=== PATIENT | male | born 1930 | race Two or more races ===

== ENCOUNTER 2016-11-18 00:49 | Inpatient (IN) | payer MEDICARE ==
[~2016-11-18] VITALS: Ht 165.1 cm; Wt 50.0 kg
--- NOTE | 2016-11-18 00:55 | NUR ---
To bed 5 an 86 yo male bibra with c/o sob and o2 sat on room air at 80's. Patient also noted to be lethargic, withdraws to deep pain. Arrived with nonrebreather mask at 15LPM saturating at 97%. Wheezing and rhonci heard on camilo lungs. Maintained patent airway. Kept hob elevated. Noted 1st degree block with bbb on the monitor. Skin warm and dry to touch. Gowned. Dr Acevedo at bedside for eval.
[2016-11-18] MEDS ORDERED: LEVOFLOXACIN 750 MG /D5W 150ML 150 ML IV ONE ×2 (01:00→01:06)
[2016-11-18] MEDS ORDERED: ACETAMINOPHEN 650 MG/SUPP.RECT RC ONE ×3 (01:00→01:06)
[2016-11-18] MEDS ORDERED: IV SET PRIMARY PUMP SET 1 EA INFUS.SET MC ONE ×3 (01:06→04:17)
--- NOTE | 2016-11-18 01:10 | NUR ---
inserted moreno cath with ease, about 100cc of clear yellow urine noted, urine collected. Called lab for cone picker.
[2016-11-18] MEDS ORDERED: ALBUTEROL FS 2.5 MG/3 ML VIAL.NEB ONE ×2 (01:16→05:44)
[2016-11-18] MEDS ORDERED: IPRATROPIUM NEB FS 0.5 MG/2.5 ML AMPUL.NEB ONE ×2 (01:17→02:06)
[2016-11-18 01:25] LABS: BASOPHILS # (AUTO) 0.5 /CMM (0.0-0.2); BASOPHILS % (AUTO) 3.1 % (0.0-2.0); HEMATOCRIT 35 % (39-51); LYMPHOCYTES # (AUTO) 0.3 /CMM (0.8-4.8); LYMPHOCYTES % (AUTO) 1.9 % (20.0-44.0); MEAN CORPUSCULAR HEMOGLOBIN 26 PG (26.0-33.0); MEAN CORPUSCULAR HGB CONC 32 g/dl (31.0-36.0); MEAN CORPUSCULAR VOLUME 83 fL (80-96); MONOCYTES # (AUTO) 0.6 /CMM (0.1-1.30); MONOCYTES % (AUTO) 3.9 % (2.0-12.0); NEUTROPHILS # (AUTO) 13.5 /CMM (1.8-8.9); NEUTROPHILS % (AUTO) 91.1 % (43.0-81.0); PLATELET COUNT (AUTO) 241 /CMM (150-450); RDW COEFFICIENT OF VARIATION 14.9 (11.5-15.0); RED BLOOD CELL COUNT(AUTO) 4.17 MIL/uL (4.5-6.0); WHITE BLOOD COUNT (AUTO) 14.9 K/uL (4.3-11.0)
--- NOTE | 2016-11-18 01:26 | NUR ---
xr at bedside.
--- NOTE | 2016-11-18 01:26 | NUR ---
rt for breathing treatment at bedside.
[2016-11-18] MEDS ORDERED: VANCOMYCIN 1 GM in IV D5W 250 ML IV ONE (01:30)
[2016-11-18] MEDS ORDERED: MEROPENEM 1,000 MG in IV NS 0.9% 100 ML IV ONE (01:30)
[2016-11-18 01:35] LABS: INR 1.19 (0.87-1.13); PROTHROMBIN TIME 12.9 SECS (9.5-12.7)
[2016-11-18] MEDS ORDERED: IV D5W 250 ML IV ONE (01:35)
[2016-11-18] MEDS ORDERED: VANCOMYCIN 1 GM VIAL ONE (01:35)
[2016-11-18 01:36] LABS: CALCIUM, SERUM 8.5 mg/dL (8.5-10.1); CARBON DIOXIDE 36 mmol/L (21-32); CHLORIDE 101 mmol/L (98-107); CREATININE 0.9 mg/dL (0.6-1.3); GLUCOSE 180 mg/dL (74-106); POTASSIUM 3.9 mmol/L (3.5-5.1); SODIUM SERUM 139 mmol/L (136-145); UREA NITROGEN, BLOOD 27 mg/dL (7-18)
[2016-11-18] MEDS ORDERED: MAGN400O4 GT (01:40)
[2016-11-18] MEDS ORDERED: BISA-79 RC (01:40)
[2016-11-18] MEDS ORDERED: RISP0.5T2 PO (01:40)
[2016-11-18] MEDS ORDERED: ACET-73 GT (01:40)
[2016-11-18] MEDS ORDERED: DONE10TA44 GT (01:40)
[2016-11-18] MEDS ORDERED: ASPI81TA2 GT (01:40)
[2016-11-18] MEDS ORDERED: ACET650T10 GT (01:40)
[2016-11-18] MEDS ORDERED: MULT9LIQ6 PO (01:40)
[2016-11-18] MEDS ORDERED: SENN8.6T6 GT (01:40)
[2016-11-18] MEDS ORDERED: ALBU2.5V38 NEB (01:40)
[2016-11-18 01:43] LABS: BILIRUBIN,URINE NEGATIVE (NEGATIVE); BLOOD, URINE 1+ Ery/uL (NEGATIVE); COLOR,URINE YELLOW (YELLOW); KETONES,URINE NEGATIVE (NEGATIVE); LEUKOCYTE ESTERASE ,URINE NEGATIVE (NEGATIVE); NITRITE, URINE NEGATIVE (NEGATIVE); PH,URINE 5.5 (5.0-8.0); PROTEIN,URINE NEGATIVE (NEGATIVE); UGLUCOSE NEGATIVE (NEGATIVE); UROBILINOGEN,URINE 0.2 EU/dL (0.2)
[2016-11-18 01:43] LABS: TROPONIN I 0.052 ng/mL (0.00-0.056)
[2016-11-18] MEDS ORDERED: DEXAMETHASONE SOD PHOSPHATE 10 MG/ML VIAL ONE (01:45)
[2016-11-18 01:47] LABS: LACTIC ACID 2.6 mmol/L (0.4-2.0)
[2016-11-18 01:51] LABS: ALANINE AMINOTRANSFERASE 32 U/L (12-78); ALBUMIN 2.2 g/dL (3.4-5.0); ALKALINE PHOSPHATASE 73 U/L (46-116); ASPARTATE AMINOTRANSFERASE 20 U/L (15-37); B-TYPE NATRIURETIC PEPTIDE 2460 PG/ML (0-125); BILIRUBIN,DIRECT 0.1 mg/dL (0.0-0.2); BILIRUBIN,TOTAL 0.5 mg/dL (0.2-1.0)
[2016-11-18 01:53] LABS: ABG BASE EXCESS 6.3 mmol/L; ABG OXYGEN SATURATION 75.6 % (92.0-98.5); ABG PCO2 51.5 mmHg (35.0-45.0); ABG PH 7.412 (7.350-7.450); ABG PO2 41.2 mmHg (75.0-100.0); COHb 1.5 % (0.5-1.5); MetHb 0.8 % (0.0-1.5); O2Hb 73.9 % (94.0-97.0); VENT MODE, BG VENOUS NRB 15L
--- NOTE | 2016-11-18 01:53 | NUR ---
decadron 10mg slow ivp given on the lfa g20 per verbal order of Dr Acevedo at bedside.
[2016-11-18] MEDS ORDERED: IV NS 0.9% 1,000 ML ONE ×2 (01:59→04:17)
[2016-11-18] MEDS ORDERED: IV SET PRIMARY 1 EA INFUS.SET MC ONE (01:59)
[2016-11-18 02:00] LABS: APPEARANCE,URINE HAZY (CLEAR)
[2016-11-18] MEDS ORDERED: IPRATROPIUM NEB FS 0.5 MG/2.5 ML AMPUL.NEB NEB ONE (02:00)
[2016-11-18] MEDS ORDERED: DEXAMETHASONE SOD PHOSPHATE 10 MG/ML VIAL IV ONE (02:00)
[2016-11-18] MEDS ORDERED: IV NS 0.9% 1,000 ML BAG IV ONE (02:00)
[2016-11-18] MEDS ORDERED: ALBUTEROL FS 2.5 MG/3 ML VIAL.NEB CONTNEB ONE (02:00)
[2016-11-18 02:04] LABS: ADD URINE CULTURE NO; BACTERIA,URINE None seen /HPF (None Seen); MUCUS,URINE Moderate /LPF (None Seen); SQUAMOUS EPITHELIAL CELL,UR Few /HPF (None Seen); WBC,URINE 0-2 /HPF (0-3)
[2016-11-18 02:09] LABS: BAND % (MANUAL) 6 % (0.0-5.0); HYPOCHROMASIA 1+; LYMPHOCYTES % (MANUAL) 1 % (16-48); MONOCYTES % (MANUAL) 2 % (0-11.0); NEUTROPHILS % (MANUAL) 91 (42-76); PLATELET ESTIMATE ADEQUATE
[2016-11-18] MEDS ORDERED: IV NS 0.9% 100 ML IV ONE ×2 (02:18→04:14)
[2016-11-18] MEDS ORDERED: MEROPENEM 1 G VIAL IV ONE (02:18)
[2016-11-18 02:29] LABS: TOTAL PROTEIN, SERUM 6.5 g/dL (6.4-8.2)
[2016-11-18] MEDS ORDERED: HYDROCODONE/APAP 5/325MG 1 EACH TABLET PO PRN (03:00)
[2016-11-18] MEDS ORDERED: MAG HYDROX/AL HYDROX/SIMETH 30 ML UDC PO PRN (03:00)
[2016-11-18] MEDS ORDERED: ZOLPIDEM TARTRATE 5 MG TABLET PO PRN (03:00)
[2016-11-18] MEDS ORDERED: ONDANSETRON HCL/PF 4 MG/2 ML VIAL IVP PRN (03:00)
[2016-11-18] MEDS ORDERED: LEVOFLOXACIN 500 MG /D5W 100ML 500 MG in PREMIX 1 EA IV SCH (03:00)
[2016-11-18] MEDS ORDERED: ENOXAPARIN SODIUM 40 MG/0.4 ML DISP.SYRIN SQ SCH (03:00)
[2016-11-18] MEDS ORDERED: MAGNESIUM HYDROXIDE 30 ML UDC PO PRN (03:00)
--- NOTE | 2016-11-18 03:04 | NUR ---
Report given to Camilo BECK for brigitte.
[2016-11-18] MEDS: ALBUTEROL FS 2.5 MG/3 ML VIAL.NEB NEB SCH ×7 (03:30→22:51)
[2016-11-18 04:00] VITALS: BP 104/70
--- NOTE | 2016-11-18 04:00 | NUR ---
TELE-TD/MAINFRAME CONSULTANT PT ADMITTED TO ROOM 109 BED 1. SKIN ASSESSMENT AND ADMISSION ASSESSMENT COMPLETE. PT GIVEN BED BATH, LINENS CHANGED. VSS. WILL CONTINUE TO MONITOR.
--- NOTE | 2016-11-18 04:04 | NUR ---
TRANSPORTED TO [facility] BED UNDER ALS PROTOCOL, NO INCIDENT NOTED.
[2016-11-18] MEDS ORDERED: ENOXAPARIN SODIUM 40 MG/0.4 ML DISP.SYRIN SQ ONE (04:14)
[2016-11-18] MEDS: IV NS 0.9% 1,000 ML IV PRN ×3 (04:37→22:00)
--- NOTE | 2016-11-18 04:53 | NUR ---
CRITICAL LAB: REPEAT LACTIC 2.7 DR. HENDRICKSON NOTIFIED NO NEW ORDERS.
[2016-11-18] MEDS ORDERED: MEROPENEM 1 G in IV NS 0.9% 100 ML IV SCH (05:00)
--- NOTE | 2016-11-18 05:35 | NUR ---
TELE-TD/SLEEP LAB TECHNOLOGIST DR. HENDRICKSON PAGED TO CHANGE PT DIET TO GTUBE FEEDING. PER DR. HENDRICKSON ENDORSE TO DAYSHIFT. WILL CONTINUE TO MONITOR.
--- NOTE | 2016-11-18 07:40 | NUR ---
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
[2016-11-18 07:51] LABS: ABG OXYGEN SATURATION 94.7 % (92.0-98.5); ABG PCO2 35.8 mmHg (35.0-45.0); ABG PH 7.471 (7.350-7.450); ABG PO2 72.6 mmHg (75.0-100.0); ABG TOTAL HEMOGLOBIN 11.2 G/dL (13.5-18.0); AaDO2 286.9 mmHg; COHb 0.2 % (0.5-1.5); MetHb 0.6 % (0.0-1.5); O2Hb 93.9 % (94.0-97.0); SITE, ABG Right Radial; VENT MODE, BG SIMPLE MASK
[2016-11-18 08:00] VITALS: BP 117/58
[2016-11-18] MEDS: PANTOPRAZOLE 40 MG TABLET.DR PO SCH (09:17)
[2016-11-18] MEDS: ASPIRIN 81 MG TAB.CHEW GT SCH (09:17)
[2016-11-18] MEDS: risperiDONE 1 MG TABLET PO SCH ×2 (09:17→16:56)
--- NOTE | 2016-11-18 10:18 | NUR ---
NURSING TEACHER NOTE NASOPHARYNGEAL SUCTION DONE .KEEP CLEAN DRY, FAMILY AT BEDSIDE
[2016-11-18 12:00] VITALS: BP 115/62
--- NOTE | 2016-11-18 12:32 | NUR ---
MANAGER ECOMMERCE NOTE SPOKE WITH DR ALEGRE NOTIFIED . ABOUT ABG RESULT STATED ITS OK FOR NOW, CONT 9L O2 BY SIMPLE MASK ALSO NOTIFIED THAT PATIENT STILL NPO HOLD G TUBE FEEDING, STATED ITS OK FOR NOW WILL F\U
--- NOTE | 2016-11-18 13:00 | NUR ---
TELE RNNOTE SPOKE WITH DR ALEGRE NOTIFIED THAT BNP 2460 AND OK TO START ON G TUBE FEEDING FIBERSOURCE AT 60 ML PER HOUR
[2016-11-18] MEDS ORDERED: SECONDARY IV SET 1 EA INFUS.SET MC ONE (13:09)
[2016-11-18] MEDS: MEROPENEM 1 G in IV NS 0.9% 100 ML IV SCH (13:10)
[2016-11-18] MEDS: FIBERSOURCE HN 1,000 ML BOTTLE GT PRN (13:50)
[2016-11-18 16:00] VITALS: BP 99/58
--- NOTE | 2016-11-18 16:13 | NUR ---
SUPERVISOR CHANNEL PROCESS NOTE PLACED ON ISOFLEX BED ORDERED ,KEEP CLEAN DRY , RT AT BEDSIDE NASOPHARYNGEAL SUCTION DONE .WILL CONT TO MONITOR CLOSELY. ON BREATHING TX
--- NOTE | 2016-11-18 18:55 | NUR ---
ZIPPER REPAIRER NOTE WITH SEVERE CHEST CONGESTION ,HOLD G TUBE FEEDING FOR NOW , KEEP HOB ELEVATED WILL CONT TO MONITOR CLOSELY
--- NOTE | 2016-11-18 18:55 | NUR ---
DIETARY SUPERVISOR NOTE NOTED THAT PATIENT HAS SEVERE CHEST CONGESTION OROPHARYNGEAL SUCTION DONE OBTAINED MOD TO LARGE BLOODY SECRETION , CALLED RT .RT AT BEDSIDE , CALLED TO DR ALEGRE , LEFT A MESSAGE WILL AWAIT FOR RETURN CALL
--- NOTE | 2016-11-18 19:28 | NUR ---
MANAGER ART NOTE DR ALEGRE CALLED BACK NO NEW ORDER OK TO HOLD G TUBE FEEDING FOR NOW AWARE THAT PATIENT ASA AND LOVENOX
--- NOTE | 2016-11-18 19:30 | NUR ---
EMERGENCY ROOM CLINICIAN INITIAL NOTES RECEIVED PATIENT IN BED, LETHARGIC, RESPONSIVE TO TACTILE STIMULI, A/O X1. ON O2 VIA SIMPLE MASK @ 9LPM, TOLERATING WELL, SPO2 97% AT THIS TIME. ON TELEMETRY MONITORING, REVEALING SR WITH 1 DEGREE HB, WITH BBB AND OCCASIONAL PACs. MYERS CATHETER PATENT AND INTACT, CONNECTED TO DRAINAGE BAG BY GRAVITY. GT PATENT AND INTACT, WITH TUBE FEEDINGS PRESCRIBED, TOLERATING WELL, NO GASTRIC RESIDUALS NOTED AT THIS TIME. IV SITES PATENT AND INTACT, FLUSHED WITH NS, FREE FROM ANY S/S OF INFILTRATION OR PHLEBITIS. BED IN LOWEST AND LOCKED POSITION, CALL LIGHT LEFT WITHIN EASY REACH. WILL CONTINUE TO CLOSELY MONITOR Addendum: 11/18/16 at 2359 by NAINA CHEN RN RT AT BEDSIDE. PER RT, PATIENT IS ABLE TO COUGH. PATIENT INSTRUCTED TO COUGH, PRODUCTIVE, SUCTIONED FOR AIRWAY CLEARANCE
[2016-11-18 20:00] VITALS: BP 122/65
[2016-11-18] MEDS: DONEPEZIL 5 MG TABLET PO SCH (21:55)
[2016-11-19] VITALS: BP 122/67
[2016-11-19] MEDS ORDERED: LEVOFLOXACIN 250 MG /D5W 50 ML 250 MG in PREMIX 1 EA IV SCH (01:00)
[2016-11-19] MEDS ORDERED: SECONDARY IV SET 1 EA INFUS.SET MC ONE ×2 (01:49→20:44)
[2016-11-19] MEDS: MEROPENEM 1 G in IV NS 0.9% 100 ML IV SCH ×2 (01:55→13:43)
[2016-11-19] MEDS: ALBUTEROL FS 2.5 MG/3 ML VIAL.NEB NEB SCH ×6 (02:51→23:08)
[2016-11-19 04:00] VITALS: BP 125/66
[2016-11-19 06:44] LABS: EOSINOPHILS % (AUTO) 0.2 % (0.0-6.0); HEMATOCRIT 32 % (39-51); HEMOGLOBIN 10.3 g/dL (13.5-17.5); LYMPHOCYTES # (AUTO) 0.3 /CMM (0.8-4.8); LYMPHOCYTES % (AUTO) 1.5 % (20.0-44.0); MEAN CORPUSCULAR HEMOGLOBIN 27 PG (26.0-33.0); MEAN CORPUSCULAR HGB CONC 32 g/dl (31.0-36.0); MEAN CORPUSCULAR VOLUME 84 fL (80-96); MONOCYTES # (AUTO) 0.7 /CMM (0.1-1.30); NEUTROPHILS # (AUTO) 15.7 /CMM (1.8-8.9); NEUTROPHILS % (AUTO) 94.3 % (43.0-81.0); PLATELET COUNT (AUTO) 256 /CMM (150-450); RDW COEFFICIENT OF VARIATION 15.1 (11.5-15.0); RED BLOOD CELL COUNT(AUTO) 3.79 MIL/uL (4.5-6.0); WHITE BLOOD COUNT (AUTO) 16.6 K/uL (4.3-11.0)
--- NOTE | 2016-11-19 07:00 | NUR ---
RN CLOSING NOTES PATIENT RESTING COMFORTABLY IN BED. PATIENT ENDORSED TO THE AM SHIFT NURSE FOR HADLEY
--- NOTE | 2016-11-19 07:18 | NUR ---
RN NOTES RECEIVED PATIENT ON BED , LETHARGIC, RESPONSIVE TO TACTILE STIMULI, A/O X1. RECEIVING BREATHING TX AT THIS TIME , SPO2 97% , ON TELEMETRY MONITORING, REVEALING SR WITH 1 DEGREE HB, WITH BBB AND OCCASIONAL PACs. MYERS CATHETER DRAINING TO GRAVITY , PATENT AND INTACT, FIBERSOURCE AT 60CC/HR RUNNING VIA GT . LA FA AND R FA IV SITES PATENT AND INTACT, BED LOCKED AND IN LOWEST , POSITION, CALL LIGHT WITHIN EASY REACH. WILL CONTINUE TO MONITOR PT CLOSELY AND NOFIY MD FOR ANY SIGNIFICANT CHANGE.
[2016-11-19 07:35] LABS: CALCIUM, SERUM 8.4 mg/dL (8.5-10.1); CREATININE 0.7 mg/dL (0.6-1.3); MAGNESIUM 2.1 mg/dL (1.8-2.4); PHOSPHORUS 2.3 mg/dL (2.5-4.9); POTASSIUM 4.1 mmol/L (3.5-5.1)
[2016-11-19] MEDS: IV NS 0.9% 1,000 ML IV PRN (07:54)
[2016-11-19 08:00] VITALS: BP 127/69
[2016-11-19] MEDS: risperiDONE 1 MG TABLET PO SCH (08:19)
[2016-11-19] MEDS: ASPIRIN 81 MG TAB.CHEW GT SCH (08:19)
[2016-11-19] MEDS: PANTOPRAZOLE 40 MG TABLET.DR PO SCH (08:19)
[2016-11-19] MEDS: ENOXAPARIN SODIUM 40 MG/0.4 ML DISP.SYRIN SQ SCH (08:20)
[2016-11-19 12:00] VITALS: BP_SYST 128; BP_DIAS 60; BP_DIAS 73
--- NOTE | 2016-11-19 14:32 | NUR ---
WOUND CARE CONSULT: PATIENT SEEN AND SKIN ASSESSMENT DONE. PATIENT IMMOBILE, ON 02 FACE MASK, INCONTINENT OF STOOLS, HAS F/C, ROSY 12, ON CARSON ISOFLEX ELIZABETH BED. SEE TODAY'S SKIN ASSESSMENT IN PCS ALONG WITH RECOMMENDATIONS. RECOMMEND PRESSURE PREVENTION MEASURES, TURN AND REPOSITION EVERY 2 HRS PATIENT CONDITION PERMITS, OFFLOAD BOTH HEELS, MOISTURE PROTECTION WITH Z GUARD ORDERED. ALL DISCUSSED WITH NURSING STAFF. MD IN AGREEMENT WITH PLAN OF CARE. Addendum: 11/19/16 at 1438 by KAREN CHOUDHARY WNDNU Amended: Links added.
[2016-11-19] MEDS: IPRATROPIUM NEB FS 0.5 MG/2.5 ML AMPUL.NEB NEB PRN (14:33)
[2016-11-19] MEDS: ACETYLCYSTEINE 10% SOLN 400 MG/4 ML VIAL NEB SCH ×2 (14:33→23:07)
--- NOTE | 2016-11-19 15:18 | NUR ---
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
[2016-11-19 16:00] VITALS: BP 123/59
[2016-11-19] MEDS ORDERED: NEUTRA PHOS 1 POWD.PACKET NG ONE (16:00)
[2016-11-19] MEDS: Z GUARD REMEDY 2 OZ OINT TP PRN (16:02)
[2016-11-19] MEDS: LACTOBACILLUS RHAMNOSUS GG 1 EACH CAP.SPRINK GT SCH (16:02)
[2016-11-19] MEDS: FIBERSOURCE HN 1,000 ML BOTTLE GT PRN (16:12)
[2016-11-19] MEDS: MUPIROCIN OINT 2% 22 GM TUBE SCH ×2 (16:46→20:54)
--- NOTE | 2016-11-19 18:11 | NUR ---
RN NOTES PT STABLE, STILL ON SIMPLE MASK , O2 SAT 98%. MYERS TO GRAVITY DRAINING WELL, LFA AND RFA IV SITES CDI, COMPUTATIONAL THEORY SCIENTIST AT THE BEDSIDE , PT MEDICATED PER MD ORDER , NO SIGNIFICANT CHANGES NOTED ON THIS SHIFT.
[2016-11-19] MEDS ORDERED: FEE PK DOSING 1 MIN EA MC ONE (19:02)
--- NOTE | 2016-11-19 19:30 | NUR ---
ASSISTANT PROFESSOR SURGICAL TECHNOLOGY INITIAL NOTES RECEIVED PATIENT IN BED, LETHARGIC, RESPONSIVE TO TACTILE STIMULI, A/O X1. ON O2 VIA SIMPLE MASK @ 10LPM, TOLERATING WELL, SPO2 98% AT THIS TIME. ON TELEMETRY MONITORING, REVEALING SR WITH 1 DEGREE HB, HR = 78. MYERS CATHETER PATENT AND INTACT, CONNECTED TO DRAINAGE BAG BY GRAVITY. GT PATENT AND INTACT, WITH TUBE FEEDINGS PRESCRIBED, TOLERATING WELL, NO GASTRIC RESIDUALS NOTED AT THIS TIME. IV SITES PATENT AND INTACT, FLUSHED WITH NS, FREE FROM ANY S/S OF INFILTRATION OR PHLEBITIS. BED IN LOWEST AND LOCKED POSITION, CALL LIGHT LEFT WITHIN EASY REACH. WILL CONTINUE TO CLOSELY MONITOR
[2016-11-19 20:00] VITALS: BP 108/52
[2016-11-19] MEDS ORDERED: VANCOMYCIN 1 GM in IV D5W 250 ML IV SCH (20:00)
[2016-11-19] MEDS: VANCOMYCIN 1 GM in IV D5W 250 ML IV SCH (20:53)
[2016-11-19] MEDS: DONEPEZIL 5 MG TABLET PO SCH (20:54)
[2016-11-19] MEDS ORDERED: MUPIROCIN OINT 2% 22 GM TUBE SCH (21:00)
[2016-11-19] MEDS ORDERED: FUROSEMIDE 20 MG/2 ML VIAL IV SCH (23:30)
[2016-11-20] VITALS (7 sets, daily range): BP systolic 107–136; BP diastolic 59–79
[2016-11-20] MEDS ORDERED: FUROSEMIDE 20 MG/2 ML VIAL ONE (00:17)
[2016-11-20] MEDS: ACETAMINOPHEN 325 MG TABLET PO PRN ×2 (00:22→20:06)
--- NOTE | 2016-11-20 00:22 | NUR ---
RN NOTES PATIENT WITH NEW ORDER FOR LASIX 20MG IVP X1. MEDICATION OVERRIDE PERFORMED BY CHARGE NURSE ALTHEA, ADMINISTERED PRESCRIBED. WILL CONTINUE TO CLOSELY MONITOR
[2016-11-20] MEDS: MEROPENEM 1 G in IV NS 0.9% 100 ML IV SCH ×2 (02:58→13:50)
[2016-11-20] MEDS: ALBUTEROL FS 2.5 MG/3 ML VIAL.NEB NEB SCH ×6 (03:18→23:07)
[2016-11-20] MEDS: IPRATROPIUM NEB FS 0.5 MG/2.5 ML AMPUL.NEB NEB PRN ×2 (03:18→07:06)
--- NOTE | 2016-11-20 05:00 | NUR ---
RN NOTES PATIENT NOTED TO HAVE EPISODE OF DESATURATION TO 84, PLACED ON NONREBREATHER. WILL CONTINUE TO CLOSELY MONITOR
[2016-11-20] MEDS ORDERED: IV NS 0.9% 250 ML IV ONE (05:22)
--- NOTE | 2016-11-20 06:45 | NUR ---
RN CLOSING NOTES PATIENT RESTING COMFORTABLY IN BED, CONTINUES ON NONREBREATHER @ 15LPM. WILL ENDORSE THE PATIENT TO THE AM SHIFT NURSE FOR HADLEY
[2016-11-20 06:48] LABS: HEMATOCRIT 31 % (39-51); HEMOGLOBIN 10.3 g/dL (13.5-17.5); LYMPHOCYTES # (AUTO) 0.4 /CMM (0.8-4.8); LYMPHOCYTES % (AUTO) 2.7 % (20.0-44.0); MEAN CORPUSCULAR HEMOGLOBIN 27 PG (26.0-33.0); MEAN CORPUSCULAR HGB CONC 33 g/dl (31.0-36.0); MEAN CORPUSCULAR VOLUME 84 fL (80-96); MONOCYTES # (AUTO) 0.5 /CMM (0.1-1.30); MONOCYTES % (AUTO) 3.2 % (2.0-12.0); NEUTROPHILS # (AUTO) 13.9 /CMM (1.8-8.9); NEUTROPHILS % (AUTO) 94.1 % (43.0-81.0); PLATELET COUNT (AUTO) 253 /CMM (150-450); RED BLOOD CELL COUNT(AUTO) 3.75 MIL/uL (4.5-6.0); WHITE BLOOD COUNT (AUTO) 14.7 K/uL (4.3-11.0)
[2016-11-20] MEDS: ACETYLCYSTEINE 10% SOLN 400 MG/4 ML VIAL NEB SCH ×3 (07:05→23:07)
[2016-11-20 07:11] LABS: ALBUMIN 1.9 g/dL (3.4-5.0); BILIRUBIN,TOTAL 0.4 mg/dL (0.2-1.0); CALCIUM, SERUM 8.5 mg/dL (8.5-10.1); CREATININE 0.6 mg/dL (0.6-1.3); MAGNESIUM 2.1 mg/dL (1.8-2.4); PHOSPHORUS 2.7 mg/dL (2.5-4.9); POTASSIUM 3.3 mmol/L (3.5-5.1); TOTAL PROTEIN, SERUM 5.7 g/dL (6.4-8.2)
--- NOTE | 2016-11-20 07:20 | NUR ---
RN INITIAL NOTES: Rec'd pt asleep on bed w/ HOB elevated, A/O x1, lethargic. On non rebreather mask at 15lpm, crackles noted upon auscultation, saturating at 95%. On telemonitoring, SR w/ occasional PVCs w/ HR 86 bpm. Pt has patent & intact FC draining to adequate urine output. Has LFA G20, SL, flushed, C/D/I, no signs of infection/ infiltration noted. Provided comfort & safety measures. Call light placed w/in reached. Bed kept low, HOB elevated & in locked position. Will turn, reposition, offload heels as per protocol. Isolation precaution observed. Will continue to monitor.
[2016-11-20] MEDS: PANTOPRAZOLE 40 MG TABLET.DR PO SCH (08:39)
[2016-11-20] MEDS: ASPIRIN 81 MG TAB.CHEW GT SCH (08:39)
[2016-11-20] MEDS: LACTOBACILLUS RHAMNOSUS GG 1 EACH CAP.SPRINK GT SCH ×2 (08:39→17:39)
[2016-11-20] MEDS: MUPIROCIN OINT 2% 22 GM TUBE SCH ×2 (08:40→20:07)
[2016-11-20] MEDS: ENOXAPARIN SODIUM 40 MG/0.4 ML DISP.SYRIN SQ SCH (08:45)
[2016-11-20] MEDS: FUROSEMIDE 40 MG/4 ML VIAL IV SCH ×3 (11:17→19:04)
[2016-11-20] MEDS: POTASSIUM CHLORIDE 20 MEQ TAB.PRT.SR PO SCH ×3 (11:18→13:50)
[2016-11-20] MEDS: FIBERSOURCE HN 1,000 ML BOTTLE GT PRN (12:30)
[2016-11-20] MEDS: VANCOMYCIN 1 GM in IV D5W 250 ML IV SCH (13:50)
--- NOTE | 2016-11-20 16:00 | NUR ---
RN NOTES: Pt seen & examined by Edmund VERDE.
--- NOTE | 2016-11-20 19:30 | NUR ---
CONCRETE LAYER INITIAL NOTES RECEIVED PATIENT IN BED, LETHARGIC, RESPONSIVE TO TACTILE STIMULI, A/O X1. ON O2 VIA NONREBREATHER @ 15LPM, TOLERATING WELL, SPO2 98% AT THIS TIME, WILL ASSESS AND TITRATE PATIENT TOLERATES. ON TELEMETRY MONITORING, REVEALING SR WITH 1 DEGREE HB, HR = 79. MYERS CATHETER PATENT AND INTACT, CONNECTED TO DRAINAGE BAG BY GRAVITY. GT PATENT AND INTACT, WITH TUBE FEEDINGS PRESCRIBED, TOLERATING WELL, NO GASTRIC RESIDUALS NOTED AT THIS TIME. IV SITE PATENT AND INTACT, FLUSHED WITH NS, FREE FROM ANY S/S OF INFILTRATION OR PHLEBITIS. BED IN LOWEST AND LOCKED POSITION, CALL LIGHT LEFT WITHIN EASY REACH. WILL CONTINUE TO CLOSELY MONITOR
--- NOTE | 2016-11-20 19:42 | NUR ---
RN CLOSING NOTES: Pt still non rebreather mask at 15lpm, still w/ crackle, saturating at 97%. On telemonitoring, SR w/ occasional PVCs w/ HR 75 bpm. Pt has patent & intact FC draining to adequate urine output. Has LFA G20, SL, flushed, C/D/I, no signs of infection/ infiltration noted. Kept well rested & comfortable. Call light placed w/in reached. Bed kept low, HOB elevated & in locked position. Wound care done. Turned, repositioned & offloaded heels. Isolation precaution observed. Endorsed to PM RN Steve for HADLEY.
[2016-11-20] MEDS: DONEPEZIL 5 MG TABLET PO SCH (21:36)
[2016-11-21] VITALS: BP 103/56
[2016-11-21] MEDS: MEROPENEM 1 G in IV NS 0.9% 100 ML IV SCH ×2 (02:59→13:27)
[2016-11-21] MEDS: ALBUTEROL FS 2.5 MG/3 ML VIAL.NEB NEB SCH ×7 (03:08→23:32)
[2016-11-21 04:00] VITALS: BP 107/62
[2016-11-21] MEDS ORDERED: IV NS 0.9% 250 ML IV ONE (04:53)
--- NOTE | 2016-11-21 06:45 | NUR ---
RN CLOSING NOTES PATIENT CONTINUES ON O2 @ 15LPM VIA NONREBREATHER, SATTING 89-93%. WILL ENDORSE THE PATIENT TO THE AM SHIFT NURSE FOR HADLEY.
[2016-11-21 06:53] LABS: HEMATOCRIT 32 % (39-51); HEMOGLOBIN 10.3 g/dL (13.5-17.5); LYMPHOCYTES # (AUTO) 0.4 /CMM (0.8-4.8); LYMPHOCYTES % (AUTO) 3.1 % (20.0-44.0); MEAN CORPUSCULAR HEMOGLOBIN 27 PG (26.0-33.0); MEAN CORPUSCULAR HGB CONC 33 g/dl (31.0-36.0); MEAN CORPUSCULAR VOLUME 84 fL (80-96); MONOCYTES # (AUTO) 0.7 /CMM (0.1-1.30); MONOCYTES % (AUTO) 4.9 % (2.0-12.0); NEUTROPHILS # (AUTO) 12.8 /CMM (1.8-8.9); PLATELET COUNT (AUTO) 293 /CMM (150-450); RDW COEFFICIENT OF VARIATION 15.1 (11.5-15.0); RED BLOOD CELL COUNT(AUTO) 3.78 MIL/uL (4.5-6.0); WHITE BLOOD COUNT (AUTO) 13.9 K/uL (4.3-11.0)
[2016-11-21 07:05] LABS: BILIRUBIN,TOTAL 0.4 mg/dL (0.2-1.0); CALCIUM, SERUM 8.8 mg/dL (8.5-10.1); CREATININE 0.8 mg/dL (0.6-1.3); MAGNESIUM 2.4 mg/dL (1.8-2.4); PHOSPHORUS 2.3 mg/dL (2.5-4.9); POTASSIUM 3.7 mmol/L (3.5-5.1); TOTAL PROTEIN, SERUM 6.3 g/dL (6.4-8.2)
--- NOTE | 2016-11-21 07:20 | NUR ---
RN INITIAL NOTES: Received patient on bed during rounds, awake, opens eyes spontaneously, alert x1 with confusion, patient able to answer question when asked, able to make needs known at times, call lights placed within reached, needs anticipated and attended. With Non-rebreathing mask at 15LPM saturating at 90%. With LFA IV PLUG G20, flushed with NS and patent on TKO. With gtube Fibersource at 60cc/hr, with residual of 30cc, tolerating well. With Foleycatheter in placed, draining well, no Hematuria, no sediments, no clots seen, no odor noted. NO SOB, No LOC, respirations are even and unlabored, no acute distress noted. Kept clean and dry. Provided safety and comfort measures. Bed low and locked position, fall precaution observed. Will turn and reposition, offload heels as per protocol. HOB elevated, aspiration precaution observed. To continue to monitor accordingly.
[2016-11-21] MEDS: ACETYLCYSTEINE 10% SOLN 400 MG/4 ML VIAL NEB SCH ×3 (07:26→23:31)
[2016-11-21 08:00] VITALS: BP 100/61
[2016-11-21 08:22] LABS: ABG BASE EXCESS 17.5 mmol/L; ABG OXYGEN SATURATION 93.8 % (92.0-98.5); ABG PCO2 58.2 mmHg (35.0-45.0); ABG PH 7.491 (7.350-7.450); ABG PO2 67.7 mmHg (75.0-100.0); ABG TOTAL HEMOGLOBIN 11.6 G/dL (13.5-18.0); AaDO2 587.1 mmHg; COHb 0.3 % (0.5-1.5); MetHb 0.4 % (0.0-1.5); O2Hb 93.1 % (94.0-97.0); SITE, ABG Right Radial; VENT MODE, BG NON-REBREATHER
[2016-11-21] MEDS: VANCOMYCIN 1 GM in IV D5W 250 ML IV SCH (08:34)
[2016-11-21] MEDS: LACTOBACILLUS RHAMNOSUS GG 1 EACH CAP.SPRINK GT SCH ×2 (08:35→17:14)
[2016-11-21] MEDS: ASPIRIN 81 MG TAB.CHEW GT SCH (08:35)
[2016-11-21] MEDS: ACETAMINOPHEN 325 MG TABLET PO PRN (08:35)
[2016-11-21] MEDS: MUPIROCIN OINT 2% 22 GM TUBE SCH ×2 (08:36→21:53)
[2016-11-21] MEDS: Z GUARD REMEDY 2 OZ OINT TP PRN (08:36)
[2016-11-21] MEDS: ENOXAPARIN SODIUM 40 MG/0.4 ML DISP.SYRIN SQ SCH (08:37)
[2016-11-21] MEDS ORDERED: SECONDARY IV SET 1 EA INFUS.SET MC ONE (08:50)
--- NOTE | 2016-11-21 09:15 | NUR ---
RN NOTES: Seen and examined by Dr. Valdes today with NNO. Noted by Dr. Valdes ABG results and critical value CO2 44, noted by MD placed into Face mask at 10LPM tolerating well at 93%, Suctioned secretions by RT's. Patient verbalized felt better.
[2016-11-21] MEDS: PANTOPRAZOLE 40 MG/PACK PACK GT SCH (09:32)
[2016-11-21 12:00] VITALS: BP 113/61
[2016-11-21 12:47] LABS: IRON, SERUM 11 ug/dl (50-175); TOTAL IRON BINDING CAPACITY 144 ug/dl (250-450)
[2016-11-21 13:00] LABS: FERRITIN 982 ng/mL (8-388)
[2016-11-21] MEDS ORDERED: acetaZOLAMIDE SODIUM 500 MG/VIAL VIAL IV ONE (13:00)
--- NOTE | 2016-11-21 14:42 | NUR ---
PT WAS NOT IN THE ROOM
[2016-11-21] MEDS ORDERED: NEUTRA PHOS 1 POWD.PACKET GT ONE (15:00)
[2016-11-21] MEDS: FIBERSOURCE HN 1,000 ML BOTTLE GT PRN (15:30)
[2016-11-21 16:00] VITALS: BP 121/62
--- NOTE | 2016-11-21 18:29 | NUR ---
RN NOTES: Patient remain stable within shift, no signs and symptoms of distress noted. Afebrile. Maintain HOB elevated, aspiration precaution observed. On Face mask at 10LPM, saturating good at 94-95%, oral and nasopharyngeal suction done by RN and RT with good result. Patient is alert and oriented x1-2, seemed Lethargic but responsive to tactile stimuli. Placed comfortably in bed, safety measures ensured. With Gtube feeding tolerating well. To endorsed to next shift for continuity of care.
--- NOTE | 2016-11-21 19:55 | NUR ---
RN INITIAL NOTE RECEIVED PT IN NO ACUTE DISTRESS IN BED. PT IS OBTUNDED AND RESPONDS TO TACTILE STIMULI. PT IS ON O2 VIA NRB @ 15LPM AND TOLERATING WELL WITH O2 SAT @ 98%. PT IS ON TELE WITH SB ON THE MONITOR. PT HAS GTUBE THAT IS CLEAN DRY INTACT AND PATENT WITH FIBERSOURCE @ 60ML/HR AND TOLERATING WELL. PT HAS LFA 20G THAT IS CLEAN DRY INTACT AND PATENT WITH SALINE FLUSH. BED IN LOW LOCK POSITION WITH RIALS UP X 2. CALL LIGHT WITHIN REACH AND ALL SAFETY MEASURE ENSURED AND CARRIED OUT. WILL CONTINUE TO MONITOR PT.
[2016-11-21 20:00] VITALS: BP 96/48
[2016-11-21] MEDS: DONEPEZIL 5 MG TABLET PO SCH (21:53)
[2016-11-21] MEDS: IPRATROPIUM NEB FS 0.5 MG/2.5 ML AMPUL.NEB NEB PRN (23:32)
[2016-11-22] VITALS: BP 105/41
[2016-11-22] MEDS: MEROPENEM 1 G in IV NS 0.9% 100 ML IV SCH ×2 (01:46→15:00)
[2016-11-22] MEDS: VANCOMYCIN 1 GM in IV D5W 250 ML IV SCH (02:57)
[2016-11-22 04:00] VITALS: BP 101/42
[2016-11-22] MEDS: IPRATROPIUM NEB FS 0.5 MG/2.5 ML AMPUL.NEB NEB PRN ×3 (04:10→11:33)
[2016-11-22] MEDS: ALBUTEROL FS 2.5 MG/3 ML VIAL.NEB NEB SCH ×6 (04:10→23:36)
[2016-11-22 06:43] LABS: BASOPHILS % (AUTO) 0.1 % (0.0-2.0); EOSINOPHILS # (AUTO) 0.1 /CMM (0.0-0.7); EOSINOPHILS % (AUTO) 0.8 % (0.0-6.0); HEMATOCRIT 30 % (39-51); HEMOGLOBIN 9.8 g/dL (13.5-17.5); LYMPHOCYTES # (AUTO) 0.6 /CMM (0.8-4.8); LYMPHOCYTES % (AUTO) 5.5 % (20.0-44.0); MEAN CORPUSCULAR HEMOGLOBIN 28 PG (26.0-33.0); MEAN CORPUSCULAR HGB CONC 33 g/dl (31.0-36.0); MEAN CORPUSCULAR VOLUME 83 fL (80-96); MONOCYTES # (AUTO) 0.6 /CMM (0.1-1.30); NEUTROPHILS % (AUTO) 87.6 % (43.0-81.0); PLATELET COUNT (AUTO) 268 /CMM (150-450); RDW COEFFICIENT OF VARIATION 15.6 (11.5-15.0); RED BLOOD CELL COUNT(AUTO) 3.58 MIL/uL (4.5-6.0); WHITE BLOOD COUNT (AUTO) 10.2 K/uL (4.3-11.0)
--- NOTE | 2016-11-22 06:54 | NUR ---
RN CLOSING NOTE PT DID NOT HAVE ANY SIGNIFICANT CHANGE IN CONDITION DURING SHIFT. PT REMAINS IN NO ACUTE DISTRESS IN BED. WILL ENDORSE TO AM RN FOR CONTINUITY OF CARE.
[2016-11-22 07:04] LABS: ALBUMIN 1.8 g/dL (3.4-5.0); BILIRUBIN,TOTAL 0.4 mg/dL (0.2-1.0); CALCIUM, SERUM 8.6 mg/dL (8.5-10.1); CREATININE 0.8 mg/dL (0.6-1.3); MAGNESIUM 2.4 mg/dL (1.8-2.4); PHOSPHORUS 2.4 mg/dL (2.5-4.9); TOTAL PROTEIN, SERUM 5.8 g/dL (6.4-8.2)
--- NOTE | 2016-11-22 07:18 | NUR ---
RN INITIAL NOTES: Rec'd pt awake on bed, lethargic, HOB elevated, not in any distress. Pt on simple mask, O2 at 10 lpm, saturating at 94%. On telemonitoring, SR w/ HR at 64 bpm. Pt has patent & intact FC draining to adequate urine output. Has LFA G20 on TKO infusing well, patent, clean, dry & intact w/ no signs of infection/infiltration noted. Will turn, reposition & offload heels as per protocol. Provided comfort & safety measures. Call light placed w/in reach. Bed kept low & in locked position. Isolation precaution observed. Will monitor closely.
[2016-11-22] MEDS: ACETYLCYSTEINE 10% SOLN 400 MG/4 ML VIAL NEB SCH ×3 (07:52→23:36)
[2016-11-22 08:00] VITALS: BP 107/55
[2016-11-22] MEDS: LACTOBACILLUS RHAMNOSUS GG 1 EACH CAP.SPRINK GT SCH ×2 (08:46→16:32)
[2016-11-22] MEDS: PANTOPRAZOLE 40 MG/PACK PACK GT SCH (08:46)
[2016-11-22] MEDS: ASPIRIN 81 MG TAB.CHEW GT SCH (08:46)
[2016-11-22] MEDS: ENOXAPARIN SODIUM 40 MG/0.4 ML DISP.SYRIN SQ SCH (08:55)
[2016-11-22] MEDS: MUPIROCIN OINT 2% 22 GM TUBE SCH ×2 (08:57→21:14)
[2016-11-22] MEDS: Z GUARD REMEDY 2 OZ OINT TP PRN (08:59)
[2016-11-22 12:00] VITALS: BP 112/60
[2016-11-22] MEDS ORDERED: acetaZOLAMIDE SODIUM 500 MG/VIAL VIAL IV ONE (12:00)
[2016-11-22] MEDS: POTASSIUM CHLORIDE 20 MEQ TAB.PRT.SR PO SCH ×3 (12:31→14:22)
[2016-11-22] MEDS ORDERED: SECONDARY IV SET 1 EA INFUS.SET MC ONE (14:59)
[2016-11-22] MEDS: VANCOMYCIN 0.75 GM in IV D5W 250 ML IV SCH (15:57)
[2016-11-22 16:00] VITALS: BP 99/59
--- NOTE | 2016-11-22 16:36 | NUR ---
RN NOTES: Pt seen & examined by Edmund VERDE.
--- NOTE | 2016-11-22 18:49 | NUR ---
RN CLOSING NOTES: No acute changes noted w/in shift. Pt is lethargic, not in any distress. Pt tolerated simple mask, O2 at 10 lpm, no SOB & desaturation noted. Pt FC patent & intact draining to adequate urine output. Pt LFA G20 on TKO infusing well, patent, clean, dry & intact w/ no signs of infection/infiltration noted. Pt turned, repositioned & offloaded heels. Kept well rested & comfortable. Call light placed w/in reach. Bed kept low & in locked position. Isolation precaution observed. Will endorse to PM RN for HADLEY.
[2016-11-22] MEDS ORDERED: NEUTRA PHOS 1 POWD.PACKET NG ONE (19:00)
[2016-11-22 20:00] VITALS: BP 104/49
[2016-11-22] MEDS: DONEPEZIL 5 MG TABLET PO SCH (21:13)
[2016-11-23] VITALS: BP 116/51
[2016-11-23] MEDS: MEROPENEM 1 G in IV NS 0.9% 100 ML IV SCH ×2 (02:31→13:39)
[2016-11-23] MEDS: ALBUTEROL FS 2.5 MG/3 ML VIAL.NEB NEB SCH ×5 (03:07→23:31)
[2016-11-23] MEDS: VANCOMYCIN 0.75 GM in IV D5W 250 ML IV SCH ×2 (03:49→15:00)
[2016-11-23 04:00] VITALS: BP 105/51
[2016-11-23 07:03] LABS: CALCIUM, SERUM 8.5 mg/dL (8.5-10.1); CREATININE 0.7 mg/dL (0.6-1.3); PHOSPHORUS 2.5 mg/dL (2.5-4.9); POTASSIUM 3.3 mmol/L (3.5-5.1)
--- NOTE | 2016-11-23 07:15 | NUR ---
RN INITIAL NOTE PT RECEIVED IN BED, SLEEPING. PT SINUS AME ON TELE MONITOR. PT ON NONREBREATHER MASK AT 10L, SATING LOW, RT NOTIFIED. MYERS CATH LEAKING. G TUBE FLUSHED, PATENT. FEEDING FIBERSOURCE AT 60ML/HR. LEFT FOREARM 20G, FLUSHED AND PATENT. SKIN WARM AND DRY TO TOUCH. ISOLATION PRECAUTIONS OBSERVED AT ALL TIMES. SAFETY PRECAUTIONS IMPLEMENTED, BED IN LOCKED, LOW POSITION. TWO SIDE RAILS UP. CAREGIVER AT BEDSIDE. WILL CONTINUE TO MONITOR.
[2016-11-23 08:00] VITALS: BP 104/55
[2016-11-23] MEDS: POTASSIUM CHLORIDE 20 MEQ TAB.PRT.SR PO SCH ×3 (09:05→13:00)
[2016-11-23] MEDS: PANTOPRAZOLE 40 MG/PACK PACK GT SCH (09:05)
[2016-11-23] MEDS: LACTOBACILLUS RHAMNOSUS GG 1 EACH CAP.SPRINK GT SCH ×2 (09:05→16:48)
[2016-11-23] MEDS: ASPIRIN 81 MG TAB.CHEW GT SCH (09:05)
[2016-11-23] MEDS: MUPIROCIN OINT 2% 22 GM TUBE SCH ×2 (09:05→21:53)
[2016-11-23] MEDS: ENOXAPARIN SODIUM 40 MG/0.4 ML DISP.SYRIN SQ SCH (09:18)
--- NOTE | 2016-11-23 10:00 | NUR ---
RN NOTE MYERS CATHETER LEAKING. CONDOM CATH PUT ON.
[2016-11-23 12:00] VITALS: BP 115/55
[2016-11-23] MEDS ORDERED: POTASSIUM CHLORIDE 20 MEQ TAB.PRT.SR PO ONE (14:00)
[2016-11-23] MEDS: ACETYLCYSTEINE 10% SOLN 400 MG/4 ML VIAL NEB SCH ×2 (14:15→23:31)
[2016-11-23] MEDS: SOD FERRIC GLUC 125 MG in IV NS 0.9% 100 ML IV SCH (14:52)
[2016-11-23 16:00] VITALS: BP 128/59
[2016-11-23] MEDS: ACETAMINOPHEN 325 MG TABLET PO PRN (16:48)
--- NOTE | 2016-11-23 18:00 | NUR ---
RN NOTE NO URINE OUTPUT IN CATHETER, MADE AWARE
[2016-11-23] MEDS: FIBERSOURCE HN 1,000 ML BOTTLE GT PRN (18:14)
[2016-11-23] MEDS ORDERED: IV NS 0.9% 250 ML IV ONE (18:17)
--- NOTE | 2016-11-23 18:41 | NUR ---
RN CLOSING NOTE PATIENT RESTING IN BED COMFORTABLY, ALL MD ORDERS CARRIED OUT. PATIENT KEPT CLEAN AND DRY. ISOLATION PRECAUTIONS OBSERVED AT ALL TIMES. SAFETY MEASURES IMPLEMENTED AT ALL TIMES. WILL GIVE REPORT TO PM RN FOR HADLEY
--- NOTE | 2016-11-23 19:45 | NUR ---
RN INITIAL NOTE RECEIVED PT IN NO ACUTE DISTRESS IN BED. PT IS OBTUNDED AND RESPONDS TO TACTILE STIMULI. PT IS ON O2 VIA SIMPLE MASK @ 10LPM AND TOLERATING WELL WITH O2 SAT @ 98%. PT IS ON TELE WITH SB-SR ON THE MONITOR. PT HAS GTUBE THAT IS CLEAN DRY INTACT AND PATENT WITH FIBERSOURCE @ 60ML/HR AND TOLERATING WELL. PT HAS LFA 20G THAT IS CLEAN DRY INTACT AND PATENT WITH SALINE FLUSH. BED IN LOW LOCK POSITION WITH RIALS UP X 2. CALL LIGHT WITHIN REACH AND ALL SAFETY MEASURE ENSURED AND CARRIED OUT. WILL CONTINUE TO MONITOR PT.
[2016-11-23 20:00] VITALS: BP_SYST 102; BP_SYST 111; BP_DIAS 48; BP_DIAS 59
[2016-11-23] MEDS: DONEPEZIL 5 MG TABLET PO SCH (21:52)
[2016-11-23] MEDS ORDERED: LIDOCAINE 2% JEL UROJET 10 ML MM ONE (23:52)
[2016-11-24] VITALS (7 sets, daily range): BP systolic 90–116; BP diastolic 46–66
--- NOTE | 2016-11-24 | NUR ---
ASSEMBLER SANDAL PARTS NOTE PATIENT WITH CONDOM CATH, WITH MINIMAL BLEEDING AT THE TIP, NOTED WITH NO OUTPUT AT THIS TIME. NOTED WITH BLADDER DISTENTION. BLADDER SCAN CONFIRMED >800 ML OF URINE. INFORMED DR CARRION REGARDING PATIENT RETAINING URINE AND BLEEDING FROM URETHRA. PT HAD F/C REMOVED DURING DAYSHIFT AND A CONDOM CATHETER WAS PLACED. F/C WAS ATTEMPTED AGAIN AND WAS MET WITH RESISTANCE. RECEIVED ORDERS TO PLACE A COUDE MYERS CATHETER. CUSTOMER ACQUISITION SPECIALIST ATTEMPTED BUT WAS MET WITH RESISTANCE. DR CARRION MADE AWARE AND ANOTHER COUDE MYERS ORDER WAS PLACED. PER DR. CARRION HE WILL PLACE THE COUDE CATHETER HIMSELF. WAITING FOR DR. CARRION TO ARRIVE AT UNIT.
--- NOTE | 2016-11-24 00:30 | NUR ---
HOOP MAKER NOTE DR CARRION ARRIVED IN [facility] AND ATTEMPTED TO PLACE MYERS CATHETER VIA COUDE, BUT MET RESISTANCE. DECOMPRESSION OF BLADDER WAS PERFORMED WITH UROLOGIST TRAY FOR THE OBSTRUCTED URETHRA WITH SUCCESS. BLADDER SCAN PERFORMED PRIOR TO ARRIVAL OF DR CARRION WAS >800 ML. AFTER DECOMPRESSION OF BLADDER BY DR CARRION. BLADDER SCAN SHOWS 288 ML. UROLOGIST CONSULT SUGGESTED BY DR CARRION.
[2016-11-24] MEDS ORDERED: SECONDARY IV SET 1 EA INFUS.SET MC ONE (02:02)
[2016-11-24] MEDS: MEROPENEM 1 G in IV NS 0.9% 100 ML IV SCH ×2 (02:09→13:23)
[2016-11-24] MEDS: VANCOMYCIN 0.75 GM in IV D5W 250 ML IV SCH ×2 (03:41→15:14)
[2016-11-24] MEDS: ALBUTEROL FS 2.5 MG/3 ML VIAL.NEB NEB SCH ×6 (03:43→23:17)
[2016-11-24] MEDS ORDERED: IV SET PRIMARY PUMP SET 1 EA INFUS.SET MC ONE (06:03)
[2016-11-24] MEDS ORDERED: IV NS 0.9% 250 ML IV ONE (06:03)
[2016-11-24 06:49] LABS: EOSINOPHILS # (AUTO) 0.1 /CMM (0.0-0.7); EOSINOPHILS % (AUTO) 0.6 % (0.0-6.0); HEMATOCRIT 29 % (39-51); HEMOGLOBIN 9.1 g/dL (13.5-17.5); LYMPHOCYTES # (AUTO) 0.3 /CMM (0.8-4.8); MEAN CORPUSCULAR HEMOGLOBIN 27 PG (26.0-33.0); MEAN CORPUSCULAR HGB CONC 32 g/dl (31.0-36.0); MEAN CORPUSCULAR VOLUME 83 fL (80-96); MONOCYTES # (AUTO) 0.3 /CMM (0.1-1.30); MONOCYTES % (AUTO) 2.6 % (2.0-12.0); NEUTROPHILS # (AUTO) 12.5 /CMM (1.8-8.9); NEUTROPHILS % (AUTO) 94.8 % (43.0-81.0); PLATELET COUNT (AUTO) 254 /CMM (150-450); RED BLOOD CELL COUNT(AUTO) 3.45 MIL/uL (4.5-6.0); WHITE BLOOD COUNT (AUTO) 13.2 K/uL (4.3-11.0)
--- NOTE | 2016-11-24 07:00 | NUR ---
RN CLOSING NOTE PT DID NOT HAVE ANY SIGNIFICANT CHANGE IN CONDITION DURING SHIFT. PT REMAINS IN NO ACUTE DISTRESS IN BED. PT HAS URINARY RETENTION. ATTEMPT BY DR CARRION TO INSERT MYERS WAS UNSUCCESSFUL. WILL ENDORSE TO AM RN FOR CONTINUITY OF CARE.
[2016-11-24 07:10] LABS: CALCIUM, SERUM 8.4 mg/dL (8.5-10.1); CREATININE 0.9 mg/dL (0.6-1.3); POTASSIUM 3.5 mmol/L (3.5-5.1)
--- NOTE | 2016-11-24 07:14 | NUR ---
FISH HATCHERY LABORER NOTES RECEIVED PATIENT LETHARGIC , RESPONSIVE TO VERBAL STIMULI , NOT IN ACUTE DISTRESS , RESPIRATIONS EVEN AND UNLABORED , SPO2 OF 96% VIA 10LPM MASK , SB 58 ON TELE MONITOR , GT PATENT AND INTACT , GT FEEDING OF FIBERSOURCE @ 60ML/HR INFUSING WELL WITH NO RESIDUALS NOTED , IV OF L FA # 20 INFILTRATED , DISCONTINUED , , WILL RE INSERT IV ,NOTED WITH BLADDER DISTENTION , NOTED WITH 800ML URINE VIA BLADDER SCAN , ALL NEEDS ATTENDED , BED ON LOW AND LOCKED POSITION , SIDE RAILS X2 , CALL LIGHT WITHIN REACH , HOB @ 35 , WILL CONTINUE TO MONITOR .
[2016-11-24] MEDS: ACETYLCYSTEINE 10% SOLN 400 MG/4 ML VIAL NEB SCH ×3 (07:35→23:17)
[2016-11-24] MEDS: ASPIRIN 81 MG TAB.CHEW GT SCH (08:37)
[2016-11-24] MEDS: LACTOBACILLUS RHAMNOSUS GG 1 EACH CAP.SPRINK GT SCH ×2 (08:37→16:01)
[2016-11-24] MEDS: MUPIROCIN OINT 2% 22 GM TUBE SCH (08:37)
[2016-11-24] MEDS: PANTOPRAZOLE 40 MG/PACK PACK GT SCH (08:37)
[2016-11-24] MEDS: ENOXAPARIN SODIUM 40 MG/0.4 ML DISP.SYRIN SQ SCH (08:40)
[2016-11-24] MEDS: Z GUARD REMEDY 2 OZ OINT TP PRN (08:44)
--- NOTE | 2016-11-24 09:00 | NUR ---
SCREEN MAKING SUPERVISOR NOTES NOTIFIED NOMI MCKENNA REGARDING PT BLADDER DISTENTION , FC WAS DISCONTINUED YESTERDAY , NOTED WITH 600ML URINE VIA BLADDER SCAN , BLADDER STILL DISTENDED , SCHEDULE CHECKER ORDERED TO INSERT CAUDET FC , WILL CONTINUE TO MONITOR
--- NOTE | 2016-11-24 10:55 | NUR ---
SALES ENGINEER NOTES CAUDET MYERS CATHETER INSERTED SUCCESSFULLY , TOLERATED WELL , DRAINING VIA GRAVITY WITH PINK TINGED COLORED URINE WITH 300ML URINE , WILL CONTINUE TO MONITOR
--- NOTE | 2016-11-24 11:55 | NUR ---
M1 ARMOR CREWMAN NOTES DR DUEÑAS AT BEDSIDE , NOTIFIED PT IS STILL ON 10LPM MASK SPO2 OF 100% , CONGESTED , DEEP SUCTIONED PT X2 PT NOTED TO BE CONGESTED , SUCTIONED THICK SECRETIONS , NO RESPIRATORY DISTRESS AT THIS TIME , AWARE
--- NOTE | 2016-11-24 12:30 | NUR ---
BED SETTER NOTES NOMI MCKENNA AT BEDSIDE , NOTIFIED CAUDET FC WAS SUCCESSFULLY INSERTED , DRAINING WITH DARK RED BLOODY URINE WITH CLOTS 550 ML IN AMOUNT , ON 4LPM NC SPO2 OF 100% TOLERATING WELL , NOTED TO BE LESS CONGESTED VIA AUSCULTATION , FREQUENT DEEP SUCTIONING NEEDED PT HAS MODERATE AMOUNT OF THICK SECRETIONS , LETHARGIC , RESPONSIVE TO TACTILE STIMULI , OUTSOLE HANDLER AWARE , WILL CONTINUE TO MONITOR
[2016-11-24] MEDS: SOD FERRIC GLUC 125 MG in IV NS 0.9% 100 ML IV SCH (13:45)
[2016-11-24] MEDS: FIBERSOURCE HN 1,000 ML BOTTLE GT PRN (16:01)
[2016-11-24] MEDS: DONEPEZIL 5 MG TABLET PO SCH (21:31)
[2016-11-25] VITALS: BP 101/45
[2016-11-25] MEDS: MEROPENEM 1 G in IV NS 0.9% 100 ML IV SCH ×2 (01:10→16:01)
[2016-11-25] MEDS: ALBUTEROL FS 2.5 MG/3 ML VIAL.NEB NEB SCH ×6 (03:29→23:01)
[2016-11-25 04:00] VITALS: BP 101/45
[2016-11-25] MEDS: VANCOMYCIN 0.75 GM in IV D5W 250 ML IV SCH ×2 (04:16→18:13)
--- NOTE | 2016-11-25 06:43 | NUR ---
RN CLOSING NOTE PT DID NOT HAVE ANY SIGNIFICANT CHANGE IN CONDITION DURING SHIFT. PT REMAINS IN NO ACUTE DISTRESS IN BED. PT HAS URINARY RETENTION. WILL ENDORSE TO AM RN FOR CONTINUITY OF CARE.
[2016-11-25] MEDS: ACETYLCYSTEINE 10% SOLN 400 MG/4 ML VIAL NEB SCH ×3 (07:51→23:01)
[2016-11-25 08:00] VITALS: BP 106/40
--- NOTE | 2016-11-25 08:00 | NUR ---
MS RN NOTE PATIENT IN BED , ALL NEEDS ATTENDED WITH 5L NC WITH LETHARGIC , WITH F\C WITH HEMATURIA , WITH F\C TO GRAVITY , LT FA TKO AT THIS TIME ,NO S\S INFECTION NOTED, BED IN LOWEST AND LOCKED POSITION , CALL LIGHT WITHIN REACH , SPOKE WIT NOMI RNNP NOTIFIED THAT HOLD ASA AND LOVENOX AT THIS TIME ,PATIENT WITH HEMATURIA , ALSO NOTIFIED THAT NA 154 ,WILL CONT TO MONITOR CLOSELY
[2016-11-25 08:11] LABS: BASOPHILS % (AUTO) 0.5 % (0.0-2.0); EOSINOPHILS # (AUTO) 0.4 /CMM (0.0-0.7); EOSINOPHILS % (AUTO) 6.3 % (0.0-6.0); HEMATOCRIT 28 % (39-51); LYMPHOCYTES # (AUTO) 0.5 /CMM (0.8-4.8); LYMPHOCYTES % (AUTO) 6.9 % (20.0-44.0); MEAN CORPUSCULAR HEMOGLOBIN 27 PG (26.0-33.0); MEAN CORPUSCULAR HGB CONC 32 g/dl (31.0-36.0); MEAN CORPUSCULAR VOLUME 83 fL (80-96); MONOCYTES # (AUTO) 0.3 /CMM (0.1-1.30); MONOCYTES % (AUTO) 4.6 % (2.0-12.0); NEUTROPHILS # (AUTO) 5.6 /CMM (1.8-8.9); NEUTROPHILS % (AUTO) 81.7 % (43.0-81.0); PLATELET COUNT (AUTO) 252 /CMM (150-450); RDW COEFFICIENT OF VARIATION 15.9 (11.5-15.0); RED BLOOD CELL COUNT(AUTO) 3.36 MIL/uL (4.5-6.0); WHITE BLOOD COUNT (AUTO) 6.9 K/uL (4.3-11.0)
[2016-11-25 08:25] LABS: CALCIUM, SERUM 8.1 mg/dL (8.5-10.1); CREATININE 0.7 mg/dL (0.6-1.3); POTASSIUM 3.7 mmol/L (3.5-5.1)
[2016-11-25] MEDS: ENOXAPARIN SODIUM 40 MG/0.4 ML DISP.SYRIN SQ SCH (09:00)
[2016-11-25] MEDS: ASPIRIN 81 MG TAB.CHEW GT SCH (09:00)
--- NOTE | 2016-11-25 09:00 | NUR ---
DEVELOPMENT PROFESSIONAL NOTE NA 154 NOMI RN COMPUTER TECHNICIAN AWARE
[2016-11-25] MEDS: PANTOPRAZOLE 40 MG/PACK PACK GT SCH (09:45)
[2016-11-25] MEDS: LACTOBACILLUS RHAMNOSUS GG 1 EACH CAP.SPRINK GT SCH ×2 (09:46→18:56)
--- NOTE | 2016-11-25 12:00 | NUR ---
MS RN NOTE SPOKE WITH RT SUCTION DONE WITH BLOODY TING SECRETION NOTED , NOMI BECK IMMIGRATION SPECIALIST NOTIFIED ,
--- NOTE | 2016-11-25 12:30 | NUR ---
MS RN NOTE REP GIVEN TO NICO FROM [facility] UNIT
[2016-11-25 16:00] VITALS: BP 105/49
[2016-11-25] MEDS: SOD FERRIC GLUC 125 MG in IV NS 0.9% 100 ML IV SCH (16:53)
--- NOTE | 2016-11-25 19:30 | NUR ---
MS RN INITIAL NOTE RECEIVED REPORT FROM DAY SHIFT NURSE. PT IS IN BED, OPENS EYES TO VOICE BUT IS NON VERBAL. LUNG SOUNDS CLEAR UPPER, DIMINISHED LOWER BASES. BOWEL SOUNDS PRESENT. GT PATENT AND INTACT, FIBERSOURCE RUNNING NO RESIDUAL. IV PATENT AND INTACT. PULSES PRESENT IN ALL EXTREMITIES. MYERS INTACT AND DRAINING URINE. BED IN LOW LOCKED POSITION. CALL LIGHT WITHIN REACH. WILL CONTINUE TO MONITOR.
[2016-11-25 20:00] VITALS: BP 115/51
[2016-11-25] MEDS: DONEPEZIL 5 MG TABLET PO SCH (21:30)
[2016-11-25] MEDS: FIBERSOURCE HN 1,000 ML BOTTLE GT PRN (21:30)
[2016-11-26] MEDS: MEROPENEM 1 G in IV NS 0.9% 100 ML IV SCH ×2 (01:56→14:35)
[2016-11-26] MEDS: ALBUTEROL FS 2.5 MG/3 ML VIAL.NEB NEB SCH ×6 (02:53→23:34)
[2016-11-26] MEDS ORDERED: SECONDARY IV SET 1 EA INFUS.SET MC ONE (03:00)
[2016-11-26] MEDS: VANCOMYCIN 0.75 GM in IV D5W 250 ML IV SCH (03:04)
[2016-11-26 04:00] VITALS: BP 131/58
[2016-11-26 06:53] LABS: BASOPHILS % (AUTO) 0.4 % (0.0-2.0); EOSINOPHILS # (AUTO) 0.3 /CMM (0.0-0.7); EOSINOPHILS % (AUTO) 4.3 % (0.0-6.0); HEMATOCRIT 27 % (39-51); HEMOGLOBIN 8.8 g/dL (13.5-17.5); LYMPHOCYTES # (AUTO) 0.6 /CMM (0.8-4.8); LYMPHOCYTES % (AUTO) 9.4 % (20.0-44.0); MEAN CORPUSCULAR HEMOGLOBIN 27 PG (26.0-33.0); MEAN CORPUSCULAR HGB CONC 33 g/dl (31.0-36.0); MEAN CORPUSCULAR VOLUME 83 fL (80-96); MONOCYTES # (AUTO) 0.4 /CMM (0.1-1.30); NEUTROPHILS % (AUTO) 79.9 % (43.0-81.0); PLATELET COUNT (AUTO) 247 /CMM (150-450); RDW COEFFICIENT OF VARIATION 16.1 (11.5-15.0); RED BLOOD CELL COUNT(AUTO) 3.28 MIL/uL (4.5-6.0); WHITE BLOOD COUNT (AUTO) 6.3 K/uL (4.3-11.0)
[2016-11-26] MEDS: IPRATROPIUM NEB FS 0.5 MG/2.5 ML AMPUL.NEB NEB PRN ×3 (07:00→14:53)
[2016-11-26] MEDS: ACETYLCYSTEINE 10% SOLN 400 MG/4 ML VIAL NEB SCH ×3 (07:01→23:34)
--- NOTE | 2016-11-26 07:15 | NUR ---
TELE/RN\; PT RECEIVED ON NON-REBREATHER; PER NOC SHIFT, PT STARTED TO DESAT TO 80'S. RT AT BEDSIDE FOR SUCTIONING. PT A&OX1, ABLE TO FOLLOW COMMANDS, DENIES PAIN. FC DRAINING TOYIN URINE WITH SCANT SEDIMENTS TO GRAVITY. TOLERATING GTF; FREE WATER FLUSHES ADMINISTERED ORDERED. WILL CONT TO MONITOR PT.
[2016-11-26 07:26] LABS: CALCIUM, SERUM 8.2 mg/dL (8.5-10.1); CREATININE 0.6 mg/dL (0.6-1.3); POTASSIUM 3.6 mmol/L (3.5-5.1)
[2016-11-26 08:00] VITALS: BP 118/50
--- NOTE | 2016-11-26 08:30 | NUR ---
TELE/RN: ORALLY SUCTIONED MODERATE AMOUNT OF THICK WHITE SECRETIONS, PT WITH PRODUCTIVE COUGH. COARSE RHONCHI NOTED THROUGHOUT. PLACED BACK ON O2 4L/MIN VIA NC, SPO2 100%. HOB ELEVATED PER ASPIRATION PRECAUTIONS. WILL CONT TO MONITOR PT STATUS.
[2016-11-26] MEDS: ASPIRIN 81 MG TAB.CHEW GT SCH (08:31)
[2016-11-26] MEDS: Z GUARD REMEDY 2 OZ OINT TP PRN (08:31)
[2016-11-26] MEDS: LACTOBACILLUS RHAMNOSUS GG 1 EACH CAP.SPRINK GT SCH ×2 (08:31→16:00)
[2016-11-26] MEDS: PANTOPRAZOLE 40 MG/PACK PACK GT SCH (08:31)
--- NOTE | 2016-11-26 11:00 | NUR ---
TELE/RN: PT S/B NOMI MCKENNA, MEHREEN. UPDATED ON ABN LABS, RESP AND NEURO STATUS. HYPERNATREMIA DW ACCOUNTING RECRUITER, NEW ORDERS NOTED AND CARRIED OUT. DAUGHTER KAMLESH UPDATED.
[2016-11-26] MEDS ORDERED: IV SET PRIMARY PUMP SET 1 EA INFUS.SET MC ONE (14:50)
--- NOTE | 2016-11-26 15:00 | NUR ---
MS/RN: BED BATH, WOUND CARE RENDERED. BLADDER IRRIGATED WITH TOYIN URINE WITH SEDIMENTS NOTED.
[2016-11-26] MEDS: SOD FERRIC GLUC 125 MG in IV NS 0.9% 100 ML IV SCH (15:04)
[2016-11-26] MEDS: IV D5W 1,000 ML IV PRN (15:04)
[2016-11-26] MEDS: FIBERSOURCE HN 1,000 ML BOTTLE GT PRN (15:04)
[2016-11-26 16:00] VITALS: BP 129/59
--- NOTE | 2016-11-26 19:15 | NUR ---
MS/RN: PT ASLEEP IN BED, EASY TO AROUSE, BREATHING EVEN AND UNLABORED ON SIMPLE MASK, FC DRAINING DARK TOYIN URINE WITH CLOTS TO GRAVITY. IVF INFUSING WELL, TOLERATING GTF, HOB ELEVATED PER ASPIRATION PRECAUTIONS. CARE ENDORSED TO PM RN FOR HADLEY.
--- NOTE | 2016-11-26 19:59 | NUR ---
MS RN NOTE PT IN BED LETHARGIC, GETTING BTX PER RT. RT ALSO CHANGED FROM SIMPLE MASK TO VENTURI MASK 40% 12L O2. O2 SAT 96%. NO SOB, NO DISTRESS OR DISCOMFORT NOTED. NO S/S OF PAIN NOTED. 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 ISOLATION PRECAUTION TAKEN. GT FLUSHED ORDERED. ALSO NOTED HEMATURIA IN MYERS BAG. BLADDER IRRIGATION DONE. REPOSITION HIM Q2H FOR SKIN MANAGEMENT. SIDE RAILS UP X 3 AND CALL LIGHT WITHIN REACH. CONTINUE TO MONITOR HIM. Addendum: 11/26/16 at 2014 by MARIA VICTORIA AGRAWAL RN ALSO GT INTACT AND PATENT INFUSING FIBERSOURCE AT 60 ML/HR, 5 ML RESIDUAL NOTED. KEPT HOB ELEVATED.
[2016-11-26 20:00] VITALS: BP 111/48
[2016-11-26] MEDS: DONEPEZIL 5 MG TABLET PO SCH (21:21)
--- NOTE | 2016-11-26 23:10 | NUR ---
MS RN NOTE NOTED F/C WAS ALL OUT AND NOTED BLADDER DISTENDED. UNABLE TO INSERT NEW F/C MINOR BLEEDING ALSO NOTED. INFORMED DR MARIA M CARRION. STOPPED THE IVF. WAITING FOR MARIA M CARRION TO COME ON FLOOR TO SEE THE PT.
[2016-11-27] MEDS ORDERED: LIDOCAINE 2% JEL UROJET 10 ML MM ONE ×2 (00:56→01:00)
--- NOTE | 2016-11-27 01:00 | NUR ---
MS RN NOTE DR MARIA M CARRION CAME AND INSERTED CUADE FR 18 AND CONNETED WITH YMERS BAG. 500 ML URINE OUTPUT NOTED. RESUMED IVF ORDERED. URINE COLOR PINKISH AT THIS TIME. CONTINUE TO MONITOR HIM.
[2016-11-27] MEDS: MEROPENEM 1 G in IV NS 0.9% 100 ML IV SCH ×2 (01:37→14:20)
[2016-11-27] MEDS: ALBUTEROL FS 2.5 MG/3 ML VIAL.NEB NEB SCH ×6 (02:42→23:48)
[2016-11-27 04:00] VITALS: BP 133/45
--- NOTE | 2016-11-27 06:39 | NUR ---
MS RN NOTE PT IN BED LETHARGIC. NO DISTRESS OR DISCOMFORT NOTED. NO S/S OF PAIN NOTED. GT FEEDING INFUSING WELL, F/C INTACT AND PATENT DRAINING PINKISH COLOR URINE. IRRIGATED BLADDER ORDERED. ALSO GT FLUSHED ORDERED. REPOSITION HIM Q2H. KEPT HIM DRY AND CLEAN. SIDE RAILS UP X 3 AND CALL LIGHT WITHIN REACH. WILL ENDORSE TO DAY SHIFT NURSE FOR CONTINUE TO CARE.
[2016-11-27 06:53] LABS: BASOPHILS % (AUTO) 0.4 % (0.0-2.0); EOSINOPHILS # (AUTO) 0.2 /CMM (0.0-0.7); EOSINOPHILS % (AUTO) 2.4 % (0.0-6.0); HEMATOCRIT 27 % (39-51); HEMOGLOBIN 8.8 g/dL (13.5-17.5); LYMPHOCYTES # (AUTO) 0.7 /CMM (0.8-4.8); LYMPHOCYTES % (AUTO) 7.5 % (20.0-44.0); MEAN CORPUSCULAR HEMOGLOBIN 27 PG (26.0-33.0); MEAN CORPUSCULAR HGB CONC 33 g/dl (31.0-36.0); MEAN CORPUSCULAR VOLUME 83 fL (80-96); MONOCYTES # (AUTO) 0.5 /CMM (0.1-1.30); NEUTROPHILS # (AUTO) 7.8 /CMM (1.8-8.9); NEUTROPHILS % (AUTO) 84.7 % (43.0-81.0); PLATELET COUNT (AUTO) 215 /CMM (150-450); RED BLOOD CELL COUNT(AUTO) 3.24 MIL/uL (4.5-6.0); WHITE BLOOD COUNT (AUTO) 9.3 K/uL (4.3-11.0)
[2016-11-27 07:07] LABS: CALCIUM, SERUM 7.9 mg/dL (8.5-10.1); CREATININE 0.6 mg/dL (0.6-1.3); POTASSIUM 4.3 mmol/L (3.5-5.1)
[2016-11-27 08:00] VITALS: BP 96/45
[2016-11-27] MEDS: IPRATROPIUM NEB FS 0.5 MG/2.5 ML AMPUL.NEB NEB PRN ×2 (08:04→20:10)
[2016-11-27] MEDS: ACETYLCYSTEINE 10% SOLN 400 MG/4 ML VIAL NEB SCH ×3 (08:04→23:49)
[2016-11-27] MEDS: LACTOBACILLUS RHAMNOSUS GG 1 EACH CAP.SPRINK GT SCH ×2 (08:57→17:24)
[2016-11-27] MEDS: PANTOPRAZOLE 40 MG/PACK PACK GT SCH (08:57)
[2016-11-27] MEDS: ASPIRIN 81 MG TAB.CHEW GT SCH (08:57)
[2016-11-27] MEDS: IV D5W 1,000 ML IV PRN ×2 (08:57→21:54)
--- NOTE | 2016-11-27 11:15 | NUR ---
RN INITIAL NOTES: Received patient on bed during rounds, awake, opens eyes spontaneously, alert x1 with confusion, patient able to answer question when asked, able to make needs known at times, call lights placed within reached, needs anticipated and attended. With 40% Venturi mask saturating at 100%. With AILEEN IV PLUG G20, flushed with NS and patent with D5W 100cc/hr. With Gtube in placed Fibersource at 60cc/hr, with no residual, tolerating well. With Foleycatheter in placed, draining well, no Hematuria, no sediments, no clots seen, no odor noted. NO SOB, No LOC, respirations are even and unlabored, no acute distress noted. Kept clean and dry. Provided safety and comfort measures. Bed low and locked position, fall precaution observed. Will turn and reposition, offload heels as per protocol. HOB elevated, aspiration precaution observed. Possible transfer to SNF if medically clear.To continue to monitor accordingly.
[2016-11-27] MEDS: FIBERSOURCE HN 1,000 ML BOTTLE GT PRN (15:37)
[2016-11-27] MEDS: SOD FERRIC GLUC 125 MG in IV NS 0.9% 100 ML IV SCH (15:37)
[2016-11-27] MEDS ORDERED: SECONDARY IV SET 1 EA INFUS.SET MC ONE ×2 (15:39→21:49)
[2016-11-27 16:00] VITALS: BP 99/43
--- NOTE | 2016-11-27 19:02 | NUR ---
RN NOTES: Patient remain stable within shift, no signs and symptoms of distress noted. Afebrile. Maintain HOB elevated, aspiration precaution observed. On Venturi mask at 40%, saturating good at 98-99%, oral and nasopharyngeal suction done by RN and RT with good result. Patient is alert and oriented x1-2, seemed Lethargic but alert and responsive to tactile stimuli. Placed comfortably in bed, safety measures ensured. With Gtube feeding tolerating well. To endorsed to next shift for continuity of care.
--- NOTE | 2016-11-27 19:25 | NUR ---
RN NOTES RECEIVED PT AWAKE ON BED. NO ACUTE RESP DISTRESS TOLERATED O2 12 LPM VIA VENTURI MASK 40% SATING 96% AOX 1 ABLE TO COMMUNICATE AND FOLLOWS SIMPLE COMMAND. WITH GTF FIBERSOURCE @ 60 CC/HR. PATENCY CHECKED. IV SITE ON AILEEN G 20 RUNNING WITH D5W @ 100 CC/HR INTACT AND PATENT. F/C DRAINED WITH TOYIN COLOR URINE VIA GRAVITY. NO HEMATURIA NOTED AT THIS TIME. KEPT PT CLEAN AND COMFORTABLE IN BED. WILL CONTINUE TO MONITOR. REDUCED PRESSURE TO BONY PROMINENCE AREA. OFFLOADED EXT WITH PILLOWS.
[2016-11-27 20:00] VITALS: BP 97/49
[2016-11-27] MEDS: DONEPEZIL 5 MG TABLET PO SCH (21:48)
[2016-11-28] MEDS: MEROPENEM 1 G in IV NS 0.9% 100 ML IV SCH ×2 (02:07→15:51)
[2016-11-28] MEDS: ALBUTEROL FS 2.5 MG/3 ML VIAL.NEB NEB SCH ×6 (03:55→23:32)
[2016-11-28] MEDS: IPRATROPIUM NEB FS 0.5 MG/2.5 ML AMPUL.NEB NEB PRN (03:56)
[2016-11-28 04:00] VITALS: BP 108/55
[2016-11-28] MEDS: FIBERSOURCE HN 1,000 ML BOTTLE GT PRN (06:19)
--- NOTE | 2016-11-28 07:10 | NUR ---
RN NOTES PATIENT REMAINED IN STABLE CONDITION TOLERATED O2 ORDERED VIA VENTURI MASK. SATING 96%. NO SIGNIFICANT CHANGES MORE ALERT THAN USUAL. COMMUNICATE TO NURSE. KEPT PT CLEAN AND DRY. ENDORSED CONTINUITY OF CARE TO AM NURSE.
[2016-11-28 08:00] VITALS: BP 94/46
[2016-11-28] MEDS: ACETYLCYSTEINE 10% SOLN 400 MG/4 ML VIAL NEB SCH ×3 (08:09→23:32)
[2016-11-28 08:39] LABS: CALCIUM, SERUM 7.5 mg/dL (8.5-10.1); CREATININE 0.5 mg/dL (0.6-1.3); POTASSIUM 3.9 mmol/L (3.5-5.1)
[2016-11-28] MEDS: LACTOBACILLUS RHAMNOSUS GG 1 EACH CAP.SPRINK GT SCH ×2 (08:49→15:56)
[2016-11-28] MEDS: ASPIRIN 81 MG TAB.CHEW GT SCH (08:50)
[2016-11-28] MEDS: PANTOPRAZOLE 40 MG/PACK PACK GT SCH (08:50)
[2016-11-28 16:00] VITALS: BP 109/43
[2016-11-28 18:31] VITALS: BP 122/78
--- NOTE | 2016-11-28 19:50 | NUR ---
RN NOTES RECEIVED PT AWAKE ON BED. NO ACUTE RESP DISTRESS TOLERATED WITH O2 12 LPM VIA VENTURI MASK 40% SATING 96% AOX 1 ABLE TO COMMUNICATE AND FOLLOWS SIMPLE COMMAND. WITH GTF FIBERSOURCE @ 60 CC/HR. PATENCY CHECKED. IV SITE ON AILEEN G 20 RUNNING WITH D5W @ 100 CC/HR INTACT AND PATENT. F/C DRAINED WITH TOYIN COLOR URINE VIA GRAVITY. NO HEMATURIA NOTED AT THIS TIME. KEPT PT CLEAN AND COMFORTABLE IN BED. WILL CONTINUE TO MONITOR. REDUCED PRESSURE TO BONY PROMINENCE AREA. OFFLOADED EXT WITH PILLOWS.
[2016-11-28 20:00] VITALS: BP 99/52
[2016-11-28] MEDS: DONEPEZIL 5 MG TABLET PO SCH (21:28)
[2016-11-28 23:24] VITALS: BP 99/52
[2016-11-29] MEDS: MEROPENEM 1 G in IV NS 0.9% 100 ML IV SCH ×2 (02:14→14:47)
[2016-11-29] MEDS ORDERED: IV SET PRIMARY PUMP SET 1 EA INFUS.SET MC ONE (02:16)
[2016-11-29] MEDS ORDERED: IV NS 0.9% 250 ML IV ONE (02:16)
[2016-11-29] MEDS: FIBERSOURCE HN 1,000 ML BOTTLE GT PRN ×2 (02:19→21:54)
[2016-11-29] MEDS: ALBUTEROL FS 2.5 MG/3 ML VIAL.NEB NEB SCH ×7 (03:30→23:00)
[2016-11-29 04:00] VITALS: BP 115/56
--- NOTE | 2016-11-29 06:57 | NUR ---
RN NOTES PATIENT REMAINED IN STABLE CONDITION TOLERATED O2 14 LPM VIA VENTURI MASK WITH FIO2 40%. SATING 96%. RONCHI STILL HEARD IN RIGHT LUNG NO ACUTE RESP DISTRESS. AFEBRILE. NO SIGNIFICANT CHANGES MORE ALERT THAN USUAL. COMMUNICATE TO NURSES. KEPT PT CLEAN AND DRY. BED LOCKED AND SECURED. TX DONE ORDERED. WILL ENDORSED CONTINUITY OF CARE TO AM NURSE.
--- NOTE | 2016-11-29 07:30 | NUR ---
INITIAL NOTE PATIENT IN BED WITH LABORED BREATHING DURING CHANGE OF SHIFT, O2 SAT MID 80S. SUCTIONED AND PLACED ON NON-REBREATHER- O2 SAT IMPROVED 100%, BREATHING THEN EVEN AND UNLABORED. REST OF VS STABLE. PATIENT ALERT, VERBALIZING WORDS, UNCLEAR. LFA IV PATENT. GT PATENT, NO RESIDUALS. ORDER FOR 300ML; FLUSH Q4 ACKNOWLEDGED. ISOLATION PRECAUTIONS OBSERVED. DISCUSSED PLAN OF CARE
--- NOTE | 2016-11-29 07:35 | NUR ---
RT RT CALLED TO BEDSIDE. NT SUCTIONED THE PATIENT. LARGE AMOUNTS OF THICK, WHITE/VIGIL SECRETIONS NOTED UPON SUCTIONING. PLACED PT ON NRB MASK AT 15 LPM. RN AT BEDSIDE. WILL CONTINUE TO MONITOR THE PATIENT CLOSELY.
[2016-11-29 08:00] VITALS: BP 95/36
[2016-11-29] MEDS: ACETYLCYSTEINE 10% SOLN 400 MG/4 ML VIAL NEB SCH ×3 (08:02→22:59)
[2016-11-29] MEDS: IPRATROPIUM NEB FS 0.5 MG/2.5 ML AMPUL.NEB NEB PRN (08:09)
[2016-11-29] MEDS: LACTOBACILLUS RHAMNOSUS GG 1 EACH CAP.SPRINK GT SCH ×2 (09:01→18:04)
[2016-11-29] MEDS: PANTOPRAZOLE 40 MG/PACK PACK GT SCH (09:01)
[2016-11-29] MEDS: ASPIRIN 81 MG TAB.CHEW GT SCH (09:01)
[2016-11-29 16:00] VITALS: BP 100/49
--- NOTE | 2016-11-29 19:43 | NUR ---
CLOSING NOTE LEFT PATIENT IN STABLE CONDITION. BREATHING EVEN AND UNLABORED WITH NON-REBREATHER MASK 12L O2. PATIENT WAS SEEN BY [facility] FOR TRANSFER. NO RESIDUALS IN GT HOWEVER POSSIBLY ASPIRATED THIS SHIFT, NOTED UPON DEEP SUCTIONING. DR. GLASS MADE AWARE AND SAID CONTINUE MERROPENEM. REPOSITIONED Q2HRS. NO NEW WOUNDS. SACRUM UNCHANGED FROM CHART PHOTO. PROVIDED 300ML H2O Q4H ORDERED. CALL LIGHT IN REACH
[2016-11-29 20:00] VITALS: BP 90/43
--- NOTE | 2016-11-29 20:00 | NUR ---
MS RN NOTES RECEIVED PTS ON BED AWAKE ALERT AND RESPONSIVE , ON 12 LITERS VENTURI MASK, SATING 94%, NO SOB NO DISTRESS NOTED NOTED NO FACIAL GRIMACES NOTED , V/S STABLE AFEBRILE , HOB ELEVATED FOR ASPIRATION PRECAUTION , SUCTION SECRETION DONE PRN ,PTS ON GT FEEDING , PLACEMENT CHECKED -IN-PLACE,ON FIBERSOURCE AT 60 CC/HR TOLERATED WELL NO RESIDUAL NOTED, WITH IV HEPLOCK ON L FA g 22 INTACT AND PATENT , DUE MEDS AND IV ATB GIVEN ORDERED ,F/C INTACT AND PATENT,DRAINING WELL WITH YELLOWISH URINE OUTPUT , TURNED AND REPOSITION , ALL NEEDS ATTENDED TOO CALL LIGHT WITHIN REACH KEPT PTS SAFE CLEAN DRY AND COMFORTABLE.WILL CONTINUE TO MONITOR PTS.
[2016-11-29] MEDS: DONEPEZIL 5 MG TABLET PO SCH (21:07)
[2016-11-30] MEDS: MEROPENEM 1 G in IV NS 0.9% 100 ML IV SCH ×2 (01:31→14:00)
[2016-11-30] MEDS: ALBUTEROL FS 2.5 MG/3 ML VIAL.NEB NEB SCH ×6 (03:52→23:33)
[2016-11-30 04:00] VITALS: BP 101/50
--- NOTE | 2016-11-30 06:23 | NUR ---
MS RN NOTES PTS REMAINS ON VENTURI MASK AT 12 LITERS SATING 94% V/S STABLE AFEBRILE , NO SIGNIFICANT CHANGE NOTED AT THIS TIME , V/S STABLE AFEBRILE , WILL ENDORSE TO RN DAY FOR CONTINUITY OF CARE.
[2016-11-30] MEDS: ACETYLCYSTEINE 10% SOLN 400 MG/4 ML VIAL NEB SCH ×3 (07:45→23:33)
[2016-11-30 08:00] VITALS: BP 114/53
[2016-11-30] MEDS: LACTOBACILLUS RHAMNOSUS GG 1 EACH CAP.SPRINK GT SCH ×2 (08:50→16:45)
[2016-11-30] MEDS: ASPIRIN 81 MG TAB.CHEW GT SCH (08:50)
[2016-11-30] MEDS: PANTOPRAZOLE 40 MG/PACK PACK GT SCH (08:50)
[2016-11-30 12:00] VITALS: BP 112/50
[2016-11-30] MEDS ORDERED: Nutritional Supplement/Fiber GT (12:12)
[2016-11-30] MEDS ORDERED: ACET1OOV6 NEB (12:12)
[2016-11-30 16:00] VITALS: BP 97/47
[2016-11-30] MEDS: FIBERSOURCE HN 1,000 ML BOTTLE GT PRN (17:27)
[2016-11-30 20:00] VITALS: BP_SYST 100; BP_SYST 102; BP_DIAS 57
[2016-11-30] MEDS: DONEPEZIL 5 MG TABLET PO SCH (23:45)
[2016-12-01] MEDS: MEROPENEM 1 G in IV NS 0.9% 100 ML IV SCH ×2 (01:35→14:21)
[2016-12-01] MEDS: ALBUTEROL FS 2.5 MG/3 ML VIAL.NEB NEB SCH ×6 (03:05→23:43)
[2016-12-01 04:00] VITALS: BP 112/62
[2016-12-01] MEDS: ACETYLCYSTEINE 10% SOLN 400 MG/4 ML VIAL NEB SCH ×3 (07:19→23:43)
--- NOTE | 2016-12-01 07:25 | NUR ---
RN INITIAL NOTES: Rec'd pt awake on bed, not in any distress A/Ox1. Pt on Venturi mask, FiO2 at 40%, O2 at 12 lpm, saturating at 100%, noted productive cough but unable to expectorate. Suctioned secretions. Pt has LFA G22, SL, flushed, patent & intact w/ no signs of infection/ infiltration noted. Has patent & intact GT, on continuous feeding, Fibersource at 60 cc/hr infusing well, no residual noted upon checking. Has FC patent & intact draining to adequate urine output. Will turn, reposition & offload heels as per protocol. Call light placed w/in reach. Bed kept low & in locked position. Will continue to monitor.
--- NOTE | 2016-12-01 07:39 | NUR ---
PT IN NO ACUTE DISTRESS OVERNIGHT SUCTIONED FREQUENTLY WITH YANKEUR AND X1 NASAL, PT CONGESTED ABLE TO COUGHED UP PHLEGM, THICK AND BLOOD TINGED. CONTINUE WITH FEEDING ,TOLERATED WELL WITH NO RESIDUAL.KEPT CLEAN AND DRY.VSS,AFEBRILE
[2016-12-01 08:00] VITALS: BP_SYST 102; BP_DIAS 47; BP_DIAS 57
[2016-12-01] MEDS: LACTOBACILLUS RHAMNOSUS GG 1 EACH CAP.SPRINK GT SCH ×2 (08:07→16:48)
[2016-12-01] MEDS: ASPIRIN 81 MG TAB.CHEW GT SCH (08:07)
[2016-12-01] MEDS: PANTOPRAZOLE 40 MG/PACK PACK GT SCH (08:07)
[2016-12-01] MEDS: Z GUARD REMEDY 2 OZ OINT TP PRN (08:08)
[2016-12-01 16:00] VITALS: BP 93/55
--- NOTE | 2016-12-01 18:57 | NUR ---
RN CLOSING NOTES: No acute changes noted w/in shift. Pt still on Venturi mask, FiO2 at 40%, O2 at 12 lpm, saturating at 100%. Suctioned thick whitish to yellowish secretions. LFA G22, SL, kept patent & intact w/ no signs of infection/ infiltration noted. PEG kept patent & intact, on continuous feeding Fibersource at 60 cc/hr infusing well, no residual noted upon checking. FC kept patent & intact draining to adequate urine output. Turned, repositioned, & offloaded heels. Wound care done. Call light placed w/in reach. Bed kept low & in locked position. Isolation precaution observed. Will endorse to PM RN for [facility].
[2016-12-01 20:00] VITALS: BP 97/48
[2016-12-01] MEDS: DONEPEZIL 5 MG TABLET PO SCH (22:52)
[2016-12-02] MEDS: MEROPENEM 1 G in IV NS 0.9% 100 ML IV SCH ×2 (01:09→15:00)
[2016-12-02] MEDS: FIBERSOURCE HN 1,000 ML BOTTLE GT PRN ×2 (01:14→23:55)
[2016-12-02] MEDS: ALBUTEROL FS 2.5 MG/3 ML VIAL.NEB NEB SCH ×6 (03:21→23:45)
[2016-12-02 04:00] VITALS: BP 101/58
[2016-12-02] MEDS: IPRATROPIUM NEB FS 0.5 MG/2.5 ML AMPUL.NEB NEB PRN ×4 (07:14→19:44)
[2016-12-02] MEDS: ACETYLCYSTEINE 10% SOLN 400 MG/4 ML VIAL NEB SCH ×3 (07:14→23:45)
[2016-12-02 08:00] VITALS: BP 111/66
[2016-12-02] MEDS: ASPIRIN 81 MG TAB.CHEW GT SCH (09:50)
[2016-12-02] MEDS: PANTOPRAZOLE 40 MG/PACK PACK GT SCH (09:50)
[2016-12-02] MEDS: LACTOBACILLUS RHAMNOSUS GG 1 EACH CAP.SPRINK GT SCH ×2 (09:50→17:00)
[2016-12-02] MEDS ORDERED: SECONDARY IV SET 1 EA INFUS.SET MC ONE (15:07)
[2016-12-02] MEDS ORDERED: IV NS 0.9% 500 ML IV ONE (15:08)
[2016-12-02] MEDS ORDERED: IV SET PRIMARY PUMP SET 1 EA INFUS.SET MC ONE (15:18)
[2016-12-02 20:00] VITALS: BP_SYST 114; BP_SYST 119; BP_DIAS 61
--- NOTE | 2016-12-02 20:00 | NUR ---
MS RN NOTE PT IN BED SEMIFOWLER, A/O X 2, NO SOB, NO DISTRESS OR DISCOMFORT NOTED. PT ON VENTURI MASK O2 12L 40% O2 SAT 95%, NOTED PT WITH PRODUCTIVE COUGH BUT UNABLE TO COUGH IT UP. SUCTIONED HIM WITH MODERATE SECRETIONS NOTED. LFA #22 SL WITH TKO NO S/S OF INFILTRATION NOTED. 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 ISOLATION PRECAUTIONS TAKEN. KEPT HOB ELEVATED. F/C INTACT AND PATENT DRAINING YELLOWISH COLOR URINE. GT INTACT AND PATENT INFUSING FIBERSOURCE @ 60 ML/HR, 0 ML RESIDUAL NOTED. REPOSITION HIM Q2H. KEPT HIM DRY AND CLEAN. ALL NEEDS ATTENDED. SIDE RAILS UP X 2 AND CALL LIGHT WITHIN REACH. VSS. CONTINUE TO MONITOR HIM.
[2016-12-02] MEDS: DONEPEZIL 5 MG TABLET PO SCH (21:35)
[2016-12-03] VITALS: BP 113/57
[2016-12-03] MEDS: MEROPENEM 1 G in IV NS 0.9% 100 ML IV SCH ×2 (02:19→15:33)
[2016-12-03] MEDS: ALBUTEROL FS 2.5 MG/3 ML VIAL.NEB NEB SCH ×5 (03:25→19:47)
[2016-12-03 04:00] VITALS: BP 111/62
--- NOTE | 2016-12-03 06:59 | NUR ---
MS RN NOTE PT IN BED ASLEEP, AROUSABLE. NO CHANGE IN CONDITION. NO DISTRESS OR DISCOMFORT NOTED. S/L INTACT AND PATENT TKO, NO S/S OF INFILTRATION NOTED. GT INFUSING WELL, 0 ML RESIDUAL NOTED. F/C DRAINING WELL. REPOSITIONED HIM Q2H. KEPT HIM DRY AND CLEAN. SIDE RAILS UP X 2 AND CALL LIGHT WITHIN REACH. WILL ENDORSE TO DAY SHIFT NURSE FOR CONTINUE TO CARE.
--- NOTE | 2016-12-03 07:15 | NUR ---
RN INITIAL NOTES: Received patient on bed during rounds, awake, opens eyes spontaneously, alert x1-2 with confusion, patient able to answer question when asked, able to make needs known at times, call lights placed within reached, needs anticipated and attended. With 40% Venturi mask saturating at 95%. With LFA IV PLUG G22, flushed with NS and patent TKO. With Gtube in placed Fibersource at 60cc/hr, with residual of 20cc, tolerating well. With Foleycatheter in placed, draining well, no Hematuria, no sediments, no clots seen, no odor noted. NO SOB, No LOC, respirations are even and unlabored, no acute distress noted. Kept clean and dry. Provided safety and comfort measures. Bed low and locked position, fall precaution observed. Will turn and reposition, offload heels as per protocol. HOB elevated, aspiration precaution observed. To continue to monitor accordingly.
[2016-12-03] MEDS: ACETYLCYSTEINE 10% SOLN 400 MG/4 ML VIAL NEB SCH ×2 (07:27→15:16)
[2016-12-03 08:00] VITALS: BP 131/60
[2016-12-03] MEDS: LACTOBACILLUS RHAMNOSUS GG 1 EACH CAP.SPRINK GT SCH ×2 (08:55→17:12)
[2016-12-03] MEDS ORDERED: SECONDARY IV SET 1 EA INFUS.SET MC ONE (08:55)
[2016-12-03] MEDS: ASPIRIN 81 MG TAB.CHEW GT SCH (08:55)
[2016-12-03] MEDS: DOXYCYCLINE 100 MG in IV D5W 100 ML IV SCH ×2 (08:55→21:23)
[2016-12-03] MEDS: PANTOPRAZOLE 40 MG/PACK PACK GT SCH (08:55)
--- NOTE | 2016-12-03 10:02 | NUR ---
RN NOTES: Seen and examined by Dr. Prado with orders noted and carried out. As per Dr. Prado dc [place] of [id number].
[2016-12-03 16:00] VITALS: BP 97/47
--- NOTE | 2016-12-03 18:26 | NUR ---
RN NOTES: Patient remain stable within shift, no signs and symptoms of distress noted. Afebrile. Maintain HOB elevated, aspiration precaution observed. On Venturi mask at 40%, saturating good at 96-97%, oral and nasopharyngeal suction done by RN and RT with good result. Patient is alert and oriented x1-2, seemed more alert and responsive to tactile stimuli. Placed comfortably in bed, safety measures ensured. With Gtube feeding tolerating well. For transfer to [facility] in am. To endorsed to next shift for continuity of care.
[2016-12-03] MEDS: IPRATROPIUM NEB FS 0.5 MG/2.5 ML AMPUL.NEB NEB PRN (19:47)
[2016-12-03 20:00] VITALS: BP 112/56
--- NOTE | 2016-12-03 20:00 | NUR ---
MS RN NOTE PT IN BED ASLEEP, AROUSABLE, A/O X 2, NO SOB, NO DISTRESS OR DISCOMFORT NOTED. REMAIN ON VENTURI MASK 12L 40% O2 SAT 99%. GT INTACT AND PATENT INFUSING FIBERSOURCE AT 60 ML/HR, 0 ML RESIDUAL NOTED. IV SITE IN LFA #22 G INTACT AND PATENT TKO. NO S/S OF INFILTRATION NOTED. 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 ISOLATION PRECAUTIONS TAKEN. REPOSITION HIM Q2H. KEPT HIM DRY AND CLEAN. ALL NEEDS ATTENDED. SIDE RAILS UP X 3 AND CALL LIGHT WITHIN REACH. VSS. CONTINUE TO MONITOR HIM.
[2016-12-03] MEDS: DONEPEZIL 5 MG TABLET PO SCH (21:23)
--- NOTE | 2016-12-04 | NUR ---
MS RN NOTE SUCTIONED THE PT FREQUENTLY BY NURSE AND RT. MODERATED AMOUNT OR SECRETIONS NOTED. PT UNABLE TO CLEAR HIS THROAT. NOT PINKISH COLOR SECRETIONS.
[2016-12-04] MEDS: IPRATROPIUM NEB FS 0.5 MG/2.5 ML AMPUL.NEB NEB PRN ×2 (00:01→07:21)
[2016-12-04] MEDS: ALBUTEROL FS 2.5 MG/3 ML VIAL.NEB NEB SCH ×4 (00:01→11:49)
[2016-12-04] MEDS: FIBERSOURCE HN 1,000 ML BOTTLE GT PRN (00:04)
[2016-12-04] MEDS ORDERED: MEROPENEM 1 G VIAL IV ONE (02:37)
[2016-12-04] MEDS ORDERED: IV NS 0.9% 100 ML IV ONE (02:48)
[2016-12-04] MEDS ORDERED: SECONDARY IV SET 1 EA INFUS.SET MC ONE (02:48)
[2016-12-04] MEDS: MEROPENEM 1 G in IV NS 0.9% 100 ML IV SCH (02:58)
[2016-12-04 04:00] VITALS: BP 110/49
[2016-12-04] MEDS: ACETYLCYSTEINE 10% SOLN 400 MG/4 ML VIAL NEB SCH ×2 (04:00→07:20)
[2016-12-04 04:08] VITALS: BP 110/49
--- NOTE | 2016-12-04 06:33 | NUR ---
MS RN NOTE PT AWAKE IN BED, NO DISTRESS OR DISCOMFORT NOTED. FREQUENTLY SUCTIONED HIM WITH PINKISH SECRETIONS NOTED, MODERATE AMOUNT. IV SITE INTACT AND PATENT TKO, NO S/S OF INFILTRATION NOTED. F/C INTACT AND PATENT DRAINING YELLOWISH COLOR URINE. REPOSITION HIM Q2H. KEPT HIM DRY AND CLEAN. ALL NEEDS ATTENDED. WILL ENDORSE TO DAY SHIFT NURSE FOR CONTINUE TO CARE.
--- NOTE | 2016-12-04 07:10 | NUR ---
MS RN NOTE: RECEIVED PATIENT WHILE RESTING IN BED, A/O X2. BREATHING EVEN AND UNLABORED ON 12L O2 VIA VENTURI MASK. NO SOB, NO DISTRESS. O2 SATURATION WNL. RT AT BEDSIDE, PROVIDING SUCTION. PATIENT MADE COMFORTABLE, ALL NEEDS ATTENDED TO, SAFETY MEASURES IN PLACE, WILL CONTINUE TO MONITOR.
[2016-12-04 08:00] VITALS: BP 114/66
[2016-12-04] MEDS: ASPIRIN 81 MG TAB.CHEW GT SCH (08:26)
[2016-12-04] MEDS: PANTOPRAZOLE 40 MG/PACK PACK GT SCH (08:26)
[2016-12-04] MEDS: LACTOBACILLUS RHAMNOSUS GG 1 EACH CAP.SPRINK GT SCH (08:26)
--- NOTE | 2016-12-04 08:30 | NUR ---
ms rn note: PER DR. DUEÑAS, REMOVE VENTURI MASK, AND PLACE PATIENT ON NASAL CANULA, TITRATE O2 TO REMAIN ABOVE 92%. PATIENT PLACED ON 6L VIA NC. SATURATION AT 98% AT THIS TIME, WILL CONTINUE TO MONITOR.
[2016-12-04] MEDS: DOXYCYCLINE 100 MG in IV D5W 100 ML IV SCH (08:36)
--- NOTE | 2016-12-04 12:00 | NUR ---
MS RN NOTE: WOUND CARE RENDERED, PHOTO TAKEN OF PATIENTS WOUNDS, PLAN TO DC PATIENT LATER TODAY.
--- NOTE | 2016-12-04 13:43 | NUR ---
MS RN NOTE: DISCHARGE ORDER PROVIDED BY DR. MARIA M CARRION. PATIENT STABLE TO BE DISCHARGED TO [facility]. REPORT GIVEN TO SALOME RN INVASIVE. PATIENTS EXIT CARE COMPLETED, ALL FORMS SIGNED, COPIES IN CHART. PATIENTS GT CLAMPED, IV LEFT INTACT ON LEFT FOREARM, 22 GAUGE. PATIENTS F/C INTACT, 400 ML OUTPUT FOR SHIFT. CAREGIVER AT BEDSIDE. PATIENT SUCTIONED AND PLACED ON MASK D/T DESATURATING DURING EXERTION. PATIENT O2 SAT AT 94% PRIOR TO DC. PATIENT TRANSFERRED TO [facility] WITH ASSISTANCE OF EMT. PATIENT DISCHARGED VIA AMBULANCE TO [facility].
== END 2016-12-04 13:58 | disposition short-term general hospital (02) | DRG 871 ==
LOC: ER 00:52 → TELE1 03:13 → TELE-TD 03:21 → TELE1 10:41 → TELE-TD 13:24 → TELE1 14:16 → MEDSG1 11-24 18:45
PROVIDERS: ADMIT Internal Medicine; ATTEND Internal Medicine
PROC: 0T9B30Z Drainage of Bladder with Drainage Device, Percutaneous Approach (ICD-10-PCS; principal; 2016-11-27)
DX: A41.9 Sepsis, unspecified organism (principal); E43 Unspecified severe protein-calorie malnutrition; G93.40 Encephalopathy, unspecified; J69.0 Pneumonitis due to inhalation of food and vomit; J96.01 Acute respiratory failure with hypoxia; I50.33 Acute on chronic diastolic (congestive) heart failure; E87.2 Acidosis; E87.0 Hyperosmolality and hypernatremia; Z68.1 Body mass index [BMI] 19.9 or less, adult; N39.0 Urinary tract infection, site not specified; R64 Cachexia; J90 Pleural effusion, not elsewhere classified; J98.11 Atelectasis; E86.9 Volume depletion, unspecified; F02.80 Dementia in other diseases classified elsewhere, unspecified severity, without behavioral disturbance, psychotic disturbance, mood disturbance, and anxiety; E88.09 Other disorders of plasma-protein metabolism, not elsewhere classified; D63.8 Anemia in other chronic diseases classified elsewhere; E83.39 Other disorders of phosphorus metabolism; E87.6 Hypokalemia; G20 Parkinson's disease; G30.9 Alzheimer's disease, unspecified; L89.151 Pressure ulcer of sacral region, stage 1; R33.9 Retention of urine, unspecified; Z66 Do not resuscitate; Z87.01 Personal history of pneumonia (recurrent); Z93.1 Gastrostomy status; J40 Bronchitis, not specified as acute or chronic; L89.620 Pressure ulcer of left heel, unstageable; R21 Rash and other nonspecific skin eruption; F09 Unspecified mental disorder due to known physiological condition; Z22.322 Carrier or suspected carrier of Methicillin resistant Staphylococcus aureus; L98.8 Other specified disorders of the skin and subcutaneous tissue; R13.10 Dysphagia, unspecified; R65.20 Severe sepsis without septic shock; R91.8 Other nonspecific abnormal finding of lung field
CPT/HCPCS: 31720; 36415; 36600; 71010-TC; 80048-TC; 80053-TC; 80061-TC; 80076-TC; 80202-TC; 81000-TC; 82728-TC; 82803-TC; 82962-TC; 83540-TC; 83605-TC; 83735-TC; 83880; 84100-TC; 84484-TC; 85025-TC; 85730-TC; 86850-TC; 87040-TC; 87070-TC; 87081-TC; 87086-TC; 87400; 93307-TC; 94760-TC; 94799-TC; 97001-TC; 97110-TC; 97530-TC; A4216; A4217; A4349; A4606; A6253; A6403; J1100; J1120; J1650; J1940; J1956; J2185; J2916; J3370; J3490; J7030; J7040; J7050; J7060; J7070; Z7610